=== PATIENT | male | born 1955 | race Caucasian/White ===

== ENCOUNTER 2017-01-14 18:39 | Emergency (ER) | payer MEDICAID, OTHER ==
[~2017-01-14] VITALS: Ht 170.2 cm; Wt 62.0 kg
[~2017-01-14 18:39] MED LIST: DIAZ5 PO; PROZ40CA PO; TAMS5CAP PO
[2017-01-14 18:42] VITALS: BP 102/67; PULSE 80; RESP 16; TEMP 98.6; O2SAT 98
[2017-01-14 19:00] VITALS: BP 125/80; PULSE 78; RESP 18; TEMP 98.7
[2017-01-14] MEDS ORDERED: LORazepam 1 MG TAB PO ONE (19:00)
--- NOTE | 2017-01-14 19:01 | PD ---
HPI Chief Complaint: Anxiety Time Seen by Provider: 18:46 Travel History International Travel<30 days: No Contact w/Intl Traveler<30days: No Traveled to known affect area: No History of Present Illness HPI The patient is a 61-year-old male who presents emergency department via EMS for anxiety and panic attack. The patient has a history of anxiety, depression, bipolar affective disorder. The patient ran out of his Zyprexa and Prozac 1 week ago. He now notes increasing anxiety and depression as well as suicidal ideation. Patient does note fossa suicide over the last 2 days, however, does not have a suicide plan. He denies any previous history of suicide attempts. The patient was being followed at [facility], however, is not followed up with his nurse practitioner over there in the last several months. He denies illicit drug use or alcohol use. He does admit to smoking one half a pack of cigarettes per day. PFSH Past Medical History Narrative Medical Lymphoma, COPD Arthritis: No Asthma: No Autoimmune Disease: No Blood Disorders: No Bipolar Disorder: Yes ( ) Anxiety: Yes Depression: Yes Heart Rhythm Problems: No Cancer: Yes (LYMPHOMA) Cardiovascular Problems: No High Cholesterol: No Chemotherapy: Yes Chest Pain: No Congestive Heart Failure: No Cirrhosis: Yes (LIVER FAILURE) COPD: Yes Cerebrovascular Accident: No Diabetes: No Diminished Hearing: No Endocrine: No Gastrointestinal Disorders: Yes GERD: No Genitourinary: No Headaches: No Hepatitis: Yes (C) Hiatal Hernia: Yes Hypertension: No Immune Disorder: No Implanted Vascular Access Dvce: Yes ( ) Kidney Stones: Yes Musculoskeletal: Yes (CHRONIC LOW BACK PAIN) Neurologic: No Psychiatric: Yes Reproductive: No Respiratory: Yes (COPD) Migraines: No Myocardial Infarction: No Radiation Therapy: Yes Renal Failure: No Seizures: No Sickle Cell Disease: No Sleep Apnea: No Thyroid Disease: No Ulcer: No PNEUMOCCOCAL Vaccine (Year): 2 Past Surgical History Abdominal Surgery: Yes (HERNIA REPAIR) AICD: No Cardiac Surgery: No Ear Surgery: No Endocrine Surgery: No Eye Surgery: No Genitourinary Surgery: No Gynecologic Surgery: No Insulin Pump: No Joint Replacement: No Neurologic Surgery: No Oral Surgery: No Pacemaker: No Thoracic Surgery: No Other Surgery: Yes ("left chest port removed and g-tube removed years ago") Social History Alcohol Use: Yes (occ.) Tobacco Use: Yes (PACK A DAY) Substance Use: Yes (NOT RECENT) Allergies-Medications (Allergen,Severity, Reaction): Coded Allergies: Morphine (Verified Allergy, Severe, Hives, 01/14/17) *MDRO Multi-Drug Resistant Organism (Verified Adverse Reaction, Unknown, ) MRSA PCR Screen positive 09/10/15. Reported Meds & Prescriptions Reported Meds & Active Scripts Active Reported Zyprexa (Olanzapine) 5 Mg Tab 5 Mg PO HS Prozac (Fluoxetine HCl) 40 Mg Cap 40 Cap PO HS PRN Review of Systems Except as stated in HPI: all other systems reviewed are Neg HENT: No: Lightheadedness Cardiovascular: No: Chest Pain or Discomfort Respiratory: No: Shortness of Breath Gastrointestinal: No: Nausea, Vomiting, Abdominal Pain Neurologic: No: Dizziness Psychiatric: Positive: Anxiety, Depression, Suicidal Ideations, Mood Disorder, No: Disorder of Thought, Substance Abuse, Homicidal Ideation Physical Exam Narrative GENERAL: Awake, alert, pleasant 61-year-old male who appears his stated age and is in no acute respiratory distress. SKIN: Warm and dry. HEAD: Atraumatic. Normocephalic. EYES: No injection or drainage. ENT: No nasal bleeding or discharge. Mucous membranes pink and moist. NECK: Trachea midline. No JVD. CARDIOVASCULAR: Regular rate and rhythm. No murmur appreciated. RESPIRATORY: No accessory muscle use. Clear to auscultation. Breath sounds equal bilaterally. MUSCULOSKELETAL: No obvious deformities. No clubbing. No cyanosis. No edema. NEUROLOGICAL: Awake and alert. No obvious cranial nerve deficits. Motor grossly within normal limits. Normal speech. PSYCHIATRIC: Appropriate mood and affect; insight and judgment normal. Data Data Last Documented VS Vital Signs Date Time Temp Pulse Resp B/P Pulse Ox O2 Delivery O2 Flow Rate FiO2 01/14/17 19:00 98.7 78 18 125/80 01/14/17 18:42 98 Orders Lorazepam (Ativan) (01/14/17 19:00) Complete Blood Count With Diff (01/14/17 18:58) Comprehensive Metabolic Panel (01/14/17 18:58) Psych Screen (01/14/17 18:58) Drug Screen, Random Urine (01/14/17 18:58) Alcohol (Ethanol) (01/14/17 18:58) Labs Laboratory Tests Test 01/14/17 19:00 White Blood Count 4.9 TH/MM3 Red Blood Count 4.55 MIL/MM3 Hemoglobin 13.7 GM/DL Hematocrit 40.9 % Mean Corpuscular Volume 89.9 FL Mean Corpuscular Hemoglobin 30.2 PG Mean Corpuscular Hemoglobin 33.6 % Concent Red Cell Distribution Width 14.1 % Platelet Count 258 TH/MM3 Mean Platelet Volume 7.9 FL Neutrophils (%) (Auto) 70.0 % Lymphocytes (%) (Auto) 22.2 % Monocytes (%) (Auto) 6.6 % Eosinophils (%) (Auto) 0.7 % Basophils (%) (Auto) 0.5 % Neutrophils # (Auto) 3.4 TH/MM3 Lymphocytes # (Auto) 1.1 TH/MM3 Monocytes # (Auto) 0.3 TH/MM3 Eosinophils # (Auto) 0.0 TH/MM3 Basophils # (Auto) 0.0 TH/MM3 CBC Comment DIFF FINAL Differential Comment Sodium Level 133 MEQ/L Potassium Level 3.5 MEQ/L Chloride Level 98 MEQ/L Carbon Dioxide Level 23.6 MEQ/L Anion Gap 11 MEQ/L Blood Urea Nitrogen 10 MG/DL Creatinine 0.81 MG/DL Estimat Glomerular Filtration 98 ML/MIN Rate Random Glucose 96 MG/DL Calcium Level 8.3 MG/DL Total Bilirubin LESS THAN 0.1 MG/DL Aspartate Amino Transf 28 U/L (AST/SGOT) Alanine Aminotransferase 30 U/L (ALT/SGPT) Alkaline Phosphatase 96 U/L Total Protein 7.2 GM/DL Albumin 2.7 GM/DL Ethyl Alcohol Level 36 MG/DL MDM Medical Decision Making Medical Screen Exam Complete: Yes Emergency Medical Condition: Yes Medical Record Reviewed: Yes Interpretation(s) Laboratory Tests Test 01/14/17 19:00 White Blood Count 4.9 TH/MM3 Red Blood Count 4.55 MIL/MM3 Hemoglobin 13.7 GM/DL Hematocrit 40.9 % Mean Corpuscular Volume 89.9 FL Mean Corpuscular Hemoglobin 30.2 PG Mean Corpuscular Hemoglobin 33.6 % Concent Red Cell Distribution Width 14.1 % Platelet Count 258 TH/MM3 Mean Platelet Volume 7.9 FL Neutrophils (%) (Auto) 70.0 % Lymphocytes (%) (Auto) 22.2 % Monocytes (%) (Auto) 6.6 % Eosinophils (%) (Auto) 0.7 % Basophils (%) (Auto) 0.5 % Neutrophils # (Auto) 3.4 TH/MM3 Lymphocytes # (Auto) 1.1 TH/MM3 Monocytes # (Auto) 0.3 TH/MM3 Eosinophils # (Auto) 0.0 TH/MM3 Basophils # (Auto) 0.0 TH/MM3 CBC Comment DIFF FINAL Differential Comment Sodium Level 133 MEQ/L Potassium Level 3.5 MEQ/L Chloride Level 98 MEQ/L Carbon Dioxide Level 23.6 MEQ/L Anion Gap 11 MEQ/L Blood Urea Nitrogen 10 MG/DL Creatinine 0.81 MG/DL Estimat Glomerular Filtration 98 ML/MIN Rate Random Glucose 96 MG/DL Calcium Level 8.3 MG/DL Total Bilirubin LESS THAN 0.1 MG/DL Aspartate Amino Transf 28 U/L (AST/SGOT) Alanine Aminotransferase 30 U/L (ALT/SGPT) Alkaline Phosphatase 96 U/L Total Protein 7.2 GM/DL Albumin 2.7 GM/DL Ethyl Alcohol Level 36 MG/DL Differential Diagnosis Differential diagnoses includes anxiety, depressive disorder NOS, mood disorder NOS, panic attack, noncompliance, bipolar affective disorder. Narrative Course Labs were drawn and sent. Patient was administered Ativan 1 mg orally. Psychiatric evaluation was ordered. Labs are unremarkable. Patient is medically clear to be evaluated by psychiatry. Disposition as per psych. Diagnosis Primary Impression: Anxiety and depression Condition: Stable Mario Tompkins MD Jan 14, 2017 19:01
[2017-01-14] MEDS ORDERED: ZYPR5TAB PO (19:06)
[2017-01-14 19:25] LABS: AUTOMATED NEUTROPHIL # 3.4 TH/MM3 (1.8-7.7); BASOPHIL % 0.5 % (0.0-2.0); EOSINOPHIL % 0.7 % (0.0-4.0); HEMATOCRIT 40.9 % (39.0-51.0); HEMO FLAGS DIFF FINAL; LYMPH % 22.2 % (9.0-44.0); LYMPHOCYTE # 1.1 TH/MM3 (1.0-4.8); MEAN CELL VOLUME 89.9 FL (80.0-100.0); MEAN CORPUSCULAR HEMOGLOBIN 30.2 PG (27.0-34.0); MEAN CORPUSCULAR HGB CONC 33.6 % (32.0-36.0); MONO % 6.6 % (0.0-8.0); PLATELET COUNT 258 TH/MM3 (150-450); RED BLOOD COUNT 4.55 MIL/MM3 (4.50-5.90); RED CELL DISTRIBUTION WIDTH 14.1 % (11.6-17.2); WHITE BLOOD COUNT 4.9 TH/MM3 (4.0-11.0)
[2017-01-14 19:32] LABS: ANION GAP 11 MEQ/L (5-15)
[2017-01-14 19:35] LABS: ALKALINE PHOSPHATASE 96 U/L (45-117); ALT (GPT) 30 U/L (12-78); AST (GOT) 28 U/L (15-37); BICARBONATE 23.6 MEQ/L (21.0-32.0); BLOOD UREA NITROGEN 10 MG/DL (7-18); CHLORIDE 98 MEQ/L (98-107); GLOMERULAR FILTRATION RATE 98 ML/MIN (>89); POTASSIUM 3.5 MEQ/L (3.5-5.1); SODIUM (NA) 133 MEQ/L (136-145); TOTAL BILIRUBIN ADULT LESS THAN 0.1 MG/DL (0.2-1.0)
[2017-01-14] MEDS ORDERED: hydrOXYzine HCL 50 MG/ML VIAL IM ONE (20:15)
[2017-01-14 21:00] LABS: AMPHETAMINE, URINE NEG (NEG); BARBITURATES, URINE NEG (NEG); COCAINE, URINE NEG (NEG)
[2017-01-14 23:00] VITALS: BP 106/66; PULSE 88; RESP 20; O2SAT 97
[2017-01-15 03:00] VITALS: BP 104/68; PULSE 88; RESP 20; O2SAT 98
[2017-01-15] MEDS ORDERED: LORazepam 1 MG TAB PO ONE (03:30)
[2017-01-15 06:35] VITALS: BP 120/80
== END 2017-01-15 06:35 | disposition home or self-care (01) ==
LOC: NEPA 18:39
DX: F41.8 Other specified anxiety disorders (principal); F31.9 Bipolar disorder, unspecified; R45.851 Suicidal ideations; F17.210 Nicotine dependence, cigarettes, uncomplicated; K72.90 Hepatic failure, unspecified without coma
CPT/HCPCS: 80053; 80307; 85025; 96372; 99283; J3410

== ENCOUNTER 2017-02-18 02:36 | Emergency (ER) | payer OTHER ==
[~2017-02-18] VITALS: Ht 170.2 cm; Wt 65.0 kg
[~2017-02-18 02:36] MED LIST changes: -DIAZ5 PO; -TAMS5CAP PO; +ZYPR5TAB PO
[2017-02-18 02:41] VITALS: BP 199/139; PULSE 84; RESP 18; TEMP 98.1; O2SAT 96
[2017-02-18] MEDS ORDERED: LORazepam 2 MG/ML VIAL IV PUSH ONE (02:45)
[2017-02-18] MEDS ORDERED: SERTRALINE HCL 50 MG TAB PO ONE (02:45)
[2017-02-18] MEDS ORDERED: PROZ40CA PO (03:24)
[2017-02-18] MEDS ORDERED: ZYPR5TAB PO (03:24)
--- NOTE | 2017-02-18 03:25 | PD ---
HPI Chief Complaint: Anxiety Time Seen by Provider: 02:41 Travel History International Travel<30 days: No Contact w/Intl Traveler<30days: No Traveled to known affect area: No History of Present Illness HPI He is 61 years old. He suffers with anxiety. He takes Prozac for it. He ran out of Prozac about 2 weeks ago or so. He took a sleeping medication however ran out of that as well however does not recall the name of the sleeping medication. He was unable to sleep tonight and was also quite anxious. He states he missed his last doctor's appointment. He has no suicidal or homicidal ideation. He has mild chest tightness which he believes is related to anxiety. PFSH Past Medical History Arthritis: No Asthma: No Autoimmune Disease: No Blood Disorders: No Bipolar Disorder: Yes ( ) Anxiety: Yes Depression: Yes Heart Rhythm Problems: No Cancer: Yes (LYMPHOMA) Cardiovascular Problems: No High Cholesterol: No Chemotherapy: Yes Chest Pain: No Congestive Heart Failure: No Cirrhosis: Yes (LIVER FAILURE) COPD: Yes Cerebrovascular Accident: No Diabetes: No Diminished Hearing: No Endocrine: No Gastrointestinal Disorders: Yes GERD: No Genitourinary: No Headaches: No Hepatitis: Yes (C) Hiatal Hernia: Yes Hypertension: No Immune Disorder: No Kidney Stones: Yes Musculoskeletal: Yes (CHRONIC LOW BACK PAIN) Neurologic: No Psychiatric: Yes Reproductive: No Respiratory: Yes (COPD) Migraines: No Myocardial Infarction: No Radiation Therapy: Yes Renal Failure: No Seizures: No Sickle Cell Disease: No Sleep Apnea: No Thyroid Disease: No Ulcer: No Tetanus Vaccination: > 5 Years Influenza Vaccination: No PNEUMOCCOCAL Vaccine (Year): 2 Past Surgical History Abdominal Surgery: Yes (HERNIA REPAIR) AICD: No Cardiac Surgery: No Ear Surgery: No Endocrine Surgery: No Eye Surgery: No Genitourinary Surgery: No Gynecologic Surgery: No Insulin Pump: No Joint Replacement: No Neurologic Surgery: No Oral Surgery: No Pacemaker: No Thoracic Surgery: No Other Surgery: Yes ("left chest port removed and g-tube removed years ago") Social History Alcohol Use: Yes (occ.) Tobacco Use: Yes (PACK A DAY) Substance Use: No Allergies-Medications (Allergen,Severity, Reaction): Coded Allergies: Morphine (Verified Allergy, Severe, Hives, 02/18/17) *MDRO Multi-Drug Resistant Organism (Verified Adverse Reaction, Unknown, ) MRSA PCR Screen positive 09/10/15. Reported Meds & Prescriptions Reported Meds & Active Scripts Active Reported Zyprexa (Olanzapine) 5 Mg Tab 5 Mg PO HS Prozac (Fluoxetine HCl) 40 Mg Cap 40 Cap PO HS PRN Review of Systems Except as stated in HPI: all other systems reviewed are Neg Physical Exam Narrative GENERAL: Well-nourished well-developed 61-year-old male pleasant SKIN: Focused skin assessment warm/dry. HEAD: Atraumatic. Normocephalic. EYES: Pupils equal and round. No scleral icterus. No injection or drainage. ENT: No nasal bleeding or discharge. Mucous membranes pink and moist. NECK: Trachea midline. No JVD. CARDIOVASCULAR: Regular rate and rhythm. No murmur appreciated. RESPIRATORY: No accessory muscle use. Clear to auscultation. Breath sounds equal bilaterally. GASTROINTESTINAL: Abdomen soft, non-tender, nondistended. Hepatic and splenic margins not palpable. MUSCULOSKELETAL: No obvious deformities. No clubbing. No cyanosis. No edema. NEUROLOGICAL: Awake and alert. No obvious cranial nerve deficits. Motor grossly within normal limits. Normal speech. PSYCHIATRIC: Appropriate mood and affect; insight and judgment normal. Data Data Last Documented VS Vital Signs Date Time Temp Pulse Resp B/P Pulse Ox O2 Delivery O2 Flow Rate FiO2 02/18/17 02:43 79 22 02/18/17 02:41 98.1 199/139 96 VS reviewed Orders Lorazepam Inj (Ativan Inj) (02/18/17 02:45) Sertraline (Zoloft) (02/18/17 02:45) MDM Medical Decision Making Medical Screen Exam Complete: Yes Emergency Medical Condition: Yes Medical Record Reviewed: Yes Differential Diagnosis GANESH, panic attack, medication refill Narrative Course ativan given here with good effect. we'll send home with Prozac refill. Diagnosis Primary Impression: Anxiety and depression Additional Impressions: Insomnia Qualified Code: G47.00 - Insomnia, unspecified type Medication refill Referrals: Primary Care Physician call for appointment Additional Instructions: You have a choice when it comes to health care, and we are glad that you chose [facility]. Hopefully, we have met your expectations on today's visit. You are welcome to return to [facility] at any time, as we are committed to meeting the health care needs of our community. Med/Other Pt SpecificInfo: Prescription(s) given Scripts Olanzapine (Zyprexa)5 Mg Tab5 Mg PO HS #30 TAB Ref 0 Prov:Samuel Garcia MD 02/18/17 Fluoxetine (Prozac)40 Mg Cap40 Cap PO HS PRN (drepression) #30 CAP Ref 0 Prov:Samuel Garcia MD 02/18/17 Disposition: 01 DISCHARGE HOME Condition: Stable Samuel Garcia MD Feb 18, 2017 03:25
[2017-02-18] MEDS ORDERED: FLUoxetine HCL 20 MG CAP PO ONE (03:30)
[2017-02-18 03:34] VITALS: BP_SYST 169; BP_SYST 179; BP_DIAS 111; BP_DIAS 112; PULSE 76; RESP 18; TEMP 98.4; O2SAT 95
[2017-02-18 05:15] VITALS: BP 151/98
== END 2017-02-18 05:17 | disposition home or self-care (01) ==
LOC: NEPC 02:36
DX: F41.9 Anxiety disorder, unspecified (principal); G47.00 Insomnia, unspecified; Z76.0 Encounter for issue of repeat prescription
CPT/HCPCS: 96374; 99283; J2060

== ENCOUNTER 2017-03-16 16:34 | Observation (INO) | payer OTHER ==
[~2017-03-16] VITALS: Ht 170.2 cm; Wt 63.5 kg
[2017-03-16 16:37] VITALS: BP 86/58; PULSE 75; RESP 12; TEMP 97.5; O2SAT 96
--- NOTE | 2017-03-16 16:43 | PD ---
Physical Exam Date Seen by Provider: March 16, 2017 Time Seen by Provider: 16:40 Narrative 62 YOWM C/O LIGHT HEADED , WEAK AND FALLING. SOME SOB BUT NO CP. GETTING WORSE OVER THE LAST 2 WEEKS. VS NOTED WAITING FOR BED PLACEMENT Data Data Last Documented VS Vital Signs Date Time Temp Pulse Resp B/P Pulse Ox O2 Delivery O2 Flow Rate FiO2 03/16/17 16:37 97.5 75 12 86/58 96 MDM Medical Record Reviewed: Yes Supervised Visit with NGOZI: Alexis Salinas March 16, 2017 16:43
[2017-03-16 18:26] VITALS: BP 113/82; PULSE 73; RESP 16; O2SAT 96
[2017-03-16] MEDS ORDERED: SODIUM CHLOR 0.9% 1000 ML INJ 1,000 ML IV ONE (18:28)
[2017-03-16] MEDS ORDERED: SODIUM CHLORIDE 0.9% FLUSH 10 ML FLUSH IVF PRN (18:30)
--- NOTE | 2017-03-16 18:33 | PD ---
HPI Chief Complaint: Dizziness Time Seen by Provider: 18:25 Travel History International Travel<30 days: No Contact w/Intl Traveler<30days: No Traveled to known affect area: No History of Present Illness HPI 62-year-old male presents for evaluation of generalized weakness. Symptoms started 2 weeks ago. He reports essentially generalized weakness as well as some dizziness with a relation. Today he had a syncopal episode which prompted evaluation. He denies any injuries in the fall. He denies any headache, neck pain, chest pain, acute shortness of breath, nausea or vomiting, change in appetite, change in medication, fevers or chills. He reports chronic dyspnea secondary to COPD. Denies any illicit drug use, alcohol use. He has no other complaints. He admits to oral Dilaudid chronically for chronic lower back pain as well as marijuana use. Denies any other drug or substance use. PFSH Past Medical History Arthritis: No Asthma: No Autoimmune Disease: No Blood Disorders: No Bipolar Disorder: Yes ( ) Anxiety: Yes Depression: Yes Heart Rhythm Problems: No Cancer: Yes (lymphoma remission) Cardiovascular Problems: No High Cholesterol: No Chemotherapy: Yes Chest Pain: No Congestive Heart Failure: No Cirrhosis: Yes (LIVER FAILURE) COPD: Yes Cerebrovascular Accident: No Diabetes: No Diminished Hearing: No Endocrine: No Gastrointestinal Disorders: Yes GERD: No Genitourinary: No Headaches: No Hepatitis: Yes (C) Hiatal Hernia: Yes Hypertension: Yes Immune Disorder: No Kidney Stones: Yes Medical other: Yes (Hep C. liver failure) Musculoskeletal: Yes (CHRONIC LOW BACK PAIN) Neurologic: No Psychiatric: Yes Reproductive: No Respiratory: Yes (COPD) Migraines: No Myocardial Infarction: No Radiation Therapy: Yes Renal Failure: No Seizures: No Sickle Cell Disease: No Sleep Apnea: No Thyroid Disease: No Ulcer: No Tetanus Vaccination: < 5 Years Influenza Vaccination: No PNEUMOCCOCAL Vaccine (Year): 2 Past Surgical History Abdominal Surgery: Yes (HERNIA REPAIR) AICD: No Cardiac Surgery: No Ear Surgery: No Endocrine Surgery: No Eye Surgery: No Genitourinary Surgery: No Gynecologic Surgery: No Insulin Pump: No Joint Replacement: No Neurologic Surgery: No Oral Surgery: No Pacemaker: No Thoracic Surgery: No Other Surgery: Yes ("left chest port removed and g-tube removed years ago") Social History Alcohol Use: Yes (occu. hx of alcohol abuse) Tobacco Use: Yes (2 ppd) Substance Use: Yes (quit couple yrs) Allergies-Medications (Allergen,Severity, Reaction): Coded Allergies: Morphine (Verified Allergy, Severe, Hives, 02/18/17) *MDRO Multi-Drug Resistant Organism (Verified Adverse Reaction, Unknown, ) MRSA PCR Screen positive 09/10/15. Reported Meds & Prescriptions Reported Meds & Active Scripts Active Zyprexa (Olanzapine) 5 Mg Tab 5 Mg PO HS Prozac (Fluoxetine HCl) 40 Mg Cap 40 Cap PO HS PRN Review of Systems Except as stated in HPI: all other systems reviewed are Neg Physical Exam Narrative GENERAL: Well-developed well-nourished male in no acute distress SKIN: Warm and dry. HEAD: Atraumatic. Normocephalic. EYES: Pupils equal and round. No scleral icterus. No injection or drainage. ENT: No nasal bleeding or discharge. Mucous membranes pink and moist. NECK: Trachea midline. No JVD. CARDIOVASCULAR: Regular rate and rhythm. No murmur appreciated. RESPIRATORY: No accessory muscle use. Clear to auscultation. Breath sounds equal bilaterally. GASTROINTESTINAL: Abdomen soft, non-tender, nondistended. Hepatic and splenic margins not palpable. MUSCULOSKELETAL: No obvious deformities. No clubbing. No cyanosis. No edema. NEUROLOGICAL: Awake and alert. No obvious cranial nerve deficits. Motor grossly within normal limits. Normal speech. PSYCHIATRIC: Appropriate mood and affect; insight and judgment normal. Data Data Last Documented VS Vital Signs Date Time Temp Pulse Resp B/P Pulse Ox O2 Delivery O2 Flow Rate FiO2 03/16/17 20:58 62 83/58 03/16/17 18:26 16 96 Room Air 03/16/17 16:37 97.5 Orders Electrocardiogram (03/16/17 16:43) Electrocardiogram (03/16/17 18:28) Complete Blood Count With Diff (03/16/17 18:28) Comprehensive Metabolic Panel (03/16/17 18:28) Magnesium (Mg) (03/16/17 18:28) Ckmb (Isoenzyme) Profile (03/16/17 18:28) Troponin I (03/16/17 18:28) Act Partial Throm Time (Ptt) (03/16/17 18:28) Prothrombin Time / Inr (Pt) (03/16/17 18:28) Chest, Single Ap (03/16/17 18:28) Ct Brain W/O Iv Contrast(Rout) (03/16/17 18:28) Ecg Monitoring (03/16/17 18:28) Iv Access Insert/Monitor (03/16/17 18:28) Oximetry (03/16/17 18:28) Sodium Chloride 0.9% Flush (Ns Flush) (03/16/17 18:30) Sodium Chlor 0.9% 1000 Ml Inj (Ns 1000 M (03/16/17 18:28) Drug Screen, Random Urine (03/16/17 18:33) Alcohol (Ethanol) (03/16/17 18:33) Potassium, Serum (K) (03/16/17 19:54) Sodium Chlor 0.9% 1000 Ml Inj (Ns 1000 M (03/16/17 19:57) Urinalysis - C+S If Indicated (03/16/17 20:55) Admit Order (Ed Use Only) (03/16/17 20:57) Labs Laboratory Tests Test 03/16/17 03/16/17 03/16/17 18:55 19:00 20:15 White Blood Count 3.7 TH/MM3 Red Blood Count 5.06 MIL/MM3 Hemoglobin 14.8 GM/DL Hematocrit 45.9 % Mean Corpuscular Volume 90.8 FL Mean Corpuscular Hemoglobin 29.2 PG Mean Corpuscular Hemoglobin 32.1 % Concent Red Cell Distribution Width 15.1 % Platelet Count 229 TH/MM3 Mean Platelet Volume 8.2 FL Neutrophils (%) (Auto) 57.7 % Lymphocytes (%) (Auto) 24.9 % Monocytes (%) (Auto) 12.6 % Eosinophils (%) (Auto) 3.5 % Basophils (%) (Auto) 1.3 % Neutrophils # (Auto) 2.2 TH/MM3 Lymphocytes # (Auto) 0.9 TH/MM3 Monocytes # (Auto) 0.5 TH/MM3 Eosinophils # (Auto) 0.1 TH/MM3 Basophils # (Auto) 0.0 TH/MM3 CBC Comment DIFF FINAL Differential Comment Prothrombin Time 10.1 SEC Prothromb Time International 0.9 RATIO Ratio Activated Partial 25.7 SEC Thromboplast Time Sodium Level 136 MEQ/L Potassium Level 5.4 MEQ/L 4.4 MEQ/L Chloride Level 100 MEQ/L Carbon Dioxide Level 28.6 MEQ/L Anion Gap 7 MEQ/L Blood Urea Nitrogen 16 MG/DL Creatinine 1.18 MG/DL Estimat Glomerular Filtration 63 ML/MIN Rate Random Glucose 80 MG/DL Calcium Level 8.7 MG/DL Magnesium Level 2.3 MG/DL Total Bilirubin 0.3 MG/DL Aspartate Amino Transf 83 U/L (AST/SGOT) Alanine Aminotransferase 64 U/L (ALT/SGPT) Alkaline Phosphatase 116 U/L Total Creatine Kinase 90 U/L Troponin I LESS THAN 0.02 NG/ML Total Protein 8.1 GM/DL Albumin 2.8 GM/DL Ethyl Alcohol Level LESS THAN 3 MG/DL Urine Opiates Screen POS Urine Barbiturates Screen NEG Urine Amphetamines Screen NEG Urine Benzodiazepines Screen POS Urine Cocaine Screen NEG Urine Cannabinoids Screen NEG MDM Medical Decision Making Medical Screen Exam Complete: Yes Emergency Medical Condition: Yes Medical Record Reviewed: Yes Interpretation(s) EKG NSR LAE CT brain normal Chest x-ray normal CBC WBC 3.7 Differential Diagnosis Electrolyte abnormality, syncope, dehydration, arrhythmia, acute coronary syndrome, symptomatic anemia Narrative Course 62-year-old male who has been feeling generally weak for 2 weeks, some dizziness. Today he had a syncopal event. He has no focal neurologic deficits on examination. He is hypotensive on initial examination with the highest blood pressure reading being 113/82 Plans for basic lab work, EKG, ECG monitoring. The patient's laboratory and imaging studies been reviewed. Initial potassium was 5.3 with some hemolysis. Repeat potassium has been ordered. The patient is being given 2 L of IV fluids. Drug screen is positive for opiates and benzodiazepines. The plan would be to admit him for observation for syncope and hypotension. He is agreeable. Diagnosis Primary Impression: Syncope Qualified Code: R55 - Syncope, unspecified syncope type Admitting Information Admitting Physician Requests: Observation Cmapos Cheung March 16, 2017 18:33
--- NOTE | 2017-03-16 18:54 | RADRPT ---
EXAM DATE/TIME: 03/16/2017 18:39 [facility] COMPARISON: CHEST SINGLE AP, November 30, 2015, 7:40. INDICATIONS : Syncope MEDICAL HISTORY : None. SURGICAL HISTORY : None. ENCOUNTER: Initial ACUITY: 1 day PAIN SCORE: Non-responsive. LOCATION: Bilateral chest FINDINGS: A single view of the chest demonstrates the lungs to be symmetrically aerated without evidence of mas s, infiltrate or effusion. The cardiomediastinal contours are unremarkable. Osseous structures are intact. CONCLUSION: No acute cardiopulmonary disease demonstrated. Juventino Novak MD on March 16, 2017 at 18:52 Board Certified Radiologist. This report was verified electronically.
--- NOTE | 2017-03-16 19:03 | RADRPT ---
EXAM DATE/TIME: 03/16/2017 18:48 [facility] COMPARISON: CT BRAIN W/O CONTRAST, June 23, 2013, 13:20. INDICATIONS : Weakness and dizziness X 2 weeks. RADIATION DOSE: 38.87 CTDIvol (mGy) MEDICAL HISTORY : None SURGICAL HISTORY : None. ENCOUNTER: Initial ACUITY: 1 day PAIN SCALE: 0/10 LOCATION: cranial TECHNIQUE: Multiple contiguous axial images were obtained of the head. Using automated exposure control and adj ustment of the mA and/or kV according to patient size, radiation dose was kept as low as reasonably a chievable to obtain optimal diagnostic quality images. FINDINGS: CEREBRUM: The ventricles are normal for age. No evidence of midline shift, mass lesion, hemorrhage or acute in farction. No extra-axial fluid collections are seen. POSTERIOR FOSSA: The cerebellum and brainstem are intact. The 4th ventricle is midline. The cerebellopontine angle i s unremarkable. EXTRACRANIAL: The visualized portion of the orbits is intact. SKULL: The calvaria is intact. No evidence of skull fracture. CONCLUSION: No acute intracranial abnormality. Juventino Novak MD on March 16, 2017 at 19:00 Board Certified Radiologist. This report was verified electronically.
[2017-03-16 19:15] LABS: AUTOMATED NEUTROPHIL # 2.2 TH/MM3 (1.8-7.7); BASOPHIL % 1.3 % (0.0-2.0); EOSINOPHIL # 0.1 TH/MM3 (0-0.4); EOSINOPHIL % 3.5 % (0.0-4.0); HEMATOCRIT 45.9 % (39.0-51.0); HEMO FLAGS DIFF FINAL; LYMPH % 24.9 % (9.0-44.0); LYMPHOCYTE # 0.9 TH/MM3 (1.0-4.8); MEAN CELL VOLUME 90.8 FL (80.0-100.0); MEAN CORPUSCULAR HEMOGLOBIN 29.2 PG (27.0-34.0); MEAN CORPUSCULAR HGB CONC 32.1 % (32.0-36.0); MONO % 12.6 % (0.0-8.0); NEUT % 57.7 % (16.0-70.0); PLATELET COUNT 229 TH/MM3 (150-450); RED BLOOD COUNT 5.06 MIL/MM3 (4.50-5.90); RED CELL DISTRIBUTION WIDTH 15.1 % (11.6-17.2); WHITE BLOOD COUNT 3.7 TH/MM3 (4.0-11.0)
[2017-03-16 19:34] LABS: APTT (PATIENT) 25.7 SEC (24.3-30.1); INTERNATIONAL NORMALIZED RATIO 0.9 RATIO; PROTHROMBIN TIME - PATIENT 10.1 SEC (9.8-11.6)
[2017-03-16 19:44] LABS: AMPHETAMINE, URINE NEG (NEG); BARBITURATES, URINE NEG (NEG); COCAINE, URINE NEG (NEG)
[2017-03-16 19:50] LABS: ALKALINE PHOSPHATASE 116 U/L (45-117); ALT (GPT) 64 U/L (12-78); ANION GAP 7 MEQ/L (5-15); AST (GOT) 83 U/L (15-37); BICARBONATE 28.6 MEQ/L (21.0-32.0); BLOOD UREA NITROGEN 16 MG/DL (7-18); CHLORIDE 100 MEQ/L (98-107); CREATINE KINASE 90 U/L (39-308); GLOMERULAR FILTRATION RATE 63 ML/MIN (>89); MAGNESIUM 2.3 MG/DL (1.5-2.5); POTASSIUM 5.4 MEQ/L (3.5-5.1); SODIUM (NA) 136 MEQ/L (136-145); TOTAL BILIRUBIN ADULT 0.3 MG/DL (0.2-1.0)
[2017-03-16] MEDS ORDERED: SODIUM CHLOR 0.9% 1000 ML INJ 1,000 ML IV SCH (19:57)
[2017-03-16 20:58] VITALS: BP 83/58; PULSE 62
--- NOTE | 2017-03-16 21:26 | HHI.HP ---
[facility] Eric Rose DO Admission Diagnosis Syncope Diagnoses: (1) Syncope Diagnosis: Principal (2) Generalized weakness Diagnosis: Principal (3) Hypotension Diagnosis: Principal (4) Hyperkalemia Diagnosis: Principal Travel History International Travel<30 Days: No Contact w/Intl Traveler <30 Da: No Traveled to Known Affected Are: No History of Present Illness This is a 62-year-old male with a PMH of Anxiety, Depression, Bipolar Disorder, Lymphoma, Hepatitis C, Chronic Back Pain, COPD, h/o Alcohol Abuse and Tobacco Abuse who was brought to the ER by EMS after syncopal event. Per pt, he's had ongoing dizziness/lightheadedness for approx 2wks w/ decreased PO intake. Today , states he was at a "friend's auto shop" when he had sudden dizziness followed by syncope. +head trauma. Denies seizure activity or incontinence. No previous history of syncope in the past. On arrival, noted to be hypotensive w / BP 86/58, HR 75, O2 sat 96% on RA, Afebrile. S/p IVF w/ good response, BP currently 113/82, HR 73. CBC essentially unremarkable, mild leukopenia. K+ 5.4 , repeat pending. Trop negative. EKG w/ no acute changes. Urine Drug Screen positive for Opiates and Benzos. CT Head with no acute findings. CXR with no acute findings. Review of Systems Except as stated in HPI: all other systems reviewed are Neg ROS: 14 point review of systems otherwise negative. Past Family Social History Past Medical History PMH: Anxiety, Depression, Bipolar Disorder, Lymphoma, Hepatitis C, Chronic Back Pain, COPD, h/o Alcohol Abuse and Tobacco Abuse Past Surgical History PAST SURGICAL HISTORY: Hernia Repair, Left Chest Port, G-tube Placement and Removal Allergies: Coded Allergies: Morphine (Verified Allergy, Severe, Hives, 02/18/17) *MDRO Multi-Drug Resistant Organism (Verified Adverse Reaction, Unknown, ) MRSA PCR Screen positive 09/10/15. Family History PAST FAMILY HISTORY: Reviewed. No h/o DM or CAD Social History PAST SOCIAL HISTORY: Previous history of alcohol abuse. Smokes 1/2ppd. H/o Substance Abuse. Physical Exam Vital Signs Vital Signs Date Time Temp Pulse Resp B/P Pulse Ox O2 Delivery O2 Flow Rate FiO2 03/16/17 20:58 62 83/58 03/16/17 18:26 73 16 113/82 96 Room Air 03/16/17 16:37 97.5 75 12 86/58 96 Physical Exam PE: GENERAL: Middle-aged thin white male in no acute distress, appears tired/week. HEENT: PERRLA, EOMI. No scleral icterus or conjunctival pallor. No lid lag or facial droop. CARDIOVASCULAR: Regular rate and rhythm. No obvious murmurs to auscultation. No chest tenderness to palpation. RESPIRATORY: No obvious rhonchi or wheezing. Clear to auscultation. Breath sounds equal bilaterally. GASTROINTESTINAL: Abdomen soft, non-tender, nondistended. BS normal. MUSCULOSKELETAL: Extremities without clubbing, cyanosis, or edema. No obvious deformities. NEUROLOGICAL: Awake, alert and oriented x4. No focal neurologic deficits. Moving both upper and lower extremities spontaneously. Laboratory Laboratory Tests Test 03/16/17 03/16/17 03/16/17 18:55 19:00 20:15 White Blood Count 3.7 Red Blood Count 5.06 Hemoglobin 14.8 Hematocrit 45.9 Mean Corpuscular Volume 90.8 Mean Corpuscular Hemoglobin 29.2 Mean Corpuscular Hemoglobin 32.1 Concent Red Cell Distribution Width 15.1 Platelet Count 229 Mean Platelet Volume 8.2 Neutrophils (%) (Auto) 57.7 Lymphocytes (%) (Auto) 24.9 Monocytes (%) (Auto) 12.6 Eosinophils (%) (Auto) 3.5 Basophils (%) (Auto) 1.3 Neutrophils # (Auto) 2.2 Lymphocytes # (Auto) 0.9 Monocytes # (Auto) 0.5 Eosinophils # (Auto) 0.1 Basophils # (Auto) 0.0 CBC Comment DIFF FINAL Differential Comment Prothrombin Time 10.1 Prothromb Time International 0.9 Ratio Activated Partial 25.7 Thromboplast Time Sodium Level 136 Potassium Level 5.4 4.4 Chloride Level 100 Carbon Dioxide Level 28.6 Anion Gap 7 Blood Urea Nitrogen 16 Creatinine 1.18 Estimat Glomerular Filtration 63 Rate Random Glucose 80 Calcium Level 8.7 Magnesium Level 2.3 Total Bilirubin 0.3 Aspartate Amino Transf 83 (AST/SGOT) Alanine Aminotransferase 64 (ALT/SGPT) Alkaline Phosphatase 116 Total Creatine Kinase 90 Troponin I LESS THAN 0.02 Total Protein 8.1 Albumin 2.8 Ethyl Alcohol Level LESS THAN 3 Urine Opiates Screen POS Urine Barbiturates Screen NEG Urine Amphetamines Screen NEG Urine Benzodiazepines Screen POS Urine Cocaine Screen NEG Urine Cannabinoids Screen NEG Result Diagram: 03/16/17 1855 03/16/172014 Assessment and Plan Problem List: (1) Syncope ICD Code: R55 Status: Acute (2) Generalized weakness ICD Code: R53.1 Status: Acute (3) Hypotension ICD Code: I95.9 Status: Acute (4) Hyperkalemia ICD Code: E87.5 Status: Acute Assessment and Plan A/P: 1. Syncope: acute onset of dizziness/lightheadedness w/ associated decreased PO intake x2wks, +hypotensive on arrival, syncopal likely due to dehydration. CT Head w/ no acute findings, images reviewed by me. CXR negative, images reviewed. Admit for Observation, telemetry, check Echo-previous Echo 09/13/12 w / EF 55-60%. IVF for hydration. Repeat labs in am. 2. Generalized Weakness: ongoing weakness x2 wks per patient, labs essentially unremarkable. Check U/a to eval for underlying UTI. IVF for hydration. PT for eval/tx. 3. Hypotension: secondary to dehydration. BP on arrival, 86/58, HR 75, good response to IVF, currently BP 113/82, HR 73. Will continue to monitor. IVF. 4. Hyperkalemia: K+ 5.4 however hemolyzed. Repeat K+ now 4.4. 5. Tobacco Abuse: Pt counselled. NicoDerm prn if needed. 6. DVT Prophylaxis: SCD/Teds. 7. Social work for d/c planning as needed. 8. Case discussed w/ ER physician at length. Problem Qualifiers (1) Syncope: Qualified Code: R55 - Syncope, unspecified syncope type Rama Brown MD March 16, 2017 21:26
[2017-03-16] MEDS ORDERED: SODIUM CHLORIDE 0.9% FLUSH 10 ML FLUSH IV FLUSH PRN (21:30)
[2017-03-16] MEDS ORDERED: ONDANSETRON HCL 4 MG/2 ML VIAL IVP PRN (21:30)
[2017-03-16] MEDS ORDERED: BISACODYL 10 MG SUPP RECTAL PRN (21:30)
[2017-03-16] MEDS ORDERED: ACETAMINOPHEN 325 MG TAB PO PRN (21:30)
[2017-03-16 22:24] VITALS: BP 96/66
[2017-03-16 22:36] VITALS: BP 121/78; PULSE 74; RESP 19; TEMP 98; O2SAT 94
[2017-03-16] MEDS: SODIUM CHLOR 0.9% 1000 ML INJ 1,000 ML IV SCH (22:39)
[2017-03-16 22:40] LABS: BLOOD, URINE NEG (NEG); COMMENT (UR) CULT NOT INDICATED; CULTURE IF INDICATED CULT NOT INDICATED; GLUCOSE,URINE NEG (NEG); HYALINE CAST, URINE 59 /lpf (RARE); KETONE, URINE TRACE mg/dL (NEG); MUCUS URINE FEW /lpf (OCC); NITRITE,URINE NEG (NEG); URINE COLOR YELLOW (YELLW/STRAW)
[2017-03-16 22:45] VITALS: PULSE 73
[2017-03-17 03:22] VITALS: BP_SYST 148; BP_SYST 149; BP_DIAS 109; BP_DIAS 92; PULSE 78; RESP 18; TEMP 98.3; O2SAT 95
[2017-03-17 04:17] LABS: AUTOMATED NEUTROPHIL # 2.4 TH/MM3 (1.8-7.7); BASOPHIL % 0.8 % (0.0-2.0); EOSINOPHIL # 0.1 TH/MM3 (0-0.4); EOSINOPHIL % 2.5 % (0.0-4.0); HEMATOCRIT 42.2 % (39.0-51.0); HEMO FLAGS DIFF FINAL; LYMPH % 19.6 % (9.0-44.0); LYMPHOCYTE # 0.8 TH/MM3 (1.0-4.8); MEAN CELL VOLUME 90.4 FL (80.0-100.0); MEAN CORPUSCULAR HGB CONC 33.2 % (32.0-36.0); NEUT % 61.1 % (16.0-70.0); PLATELET COUNT 199 TH/MM3 (150-450); RED BLOOD COUNT 4.67 MIL/MM3 (4.50-5.90); RED CELL DISTRIBUTION WIDTH 14.9 % (11.6-17.2); WHITE BLOOD COUNT 3.9 TH/MM3 (4.0-11.0)
[2017-03-17 04:42] LABS: ALKALINE PHOSPHATASE 103 U/L (45-117); ALT (GPT) 57 U/L (12-78); ANION GAP 7 MEQ/L (5-15); AST (GOT) 68 U/L (15-37); BICARBONATE 24.7 MEQ/L (21.0-32.0); BLOOD UREA NITROGEN 13 MG/DL (7-18); CHLORIDE 109 MEQ/L (98-107); GLOMERULAR FILTRATION RATE 119 ML/MIN (>89); POTASSIUM 4.3 MEQ/L (3.5-5.1); SODIUM (NA) 141 MEQ/L (136-145); TOTAL BILIRUBIN ADULT 0.2 MG/DL (0.2-1.0)
[2017-03-17] MEDS: SODIUM CHLOR 0.9% 1000 ML INJ 1,000 ML IV SCH (07:19)
[2017-03-17 08:08] VITALS: BP_SYST 175; BP_SYST 176; BP_SYST 194; BP_DIAS 118; BP_DIAS 120; BP_DIAS 123; PULSE 93; RESP 19; TEMP 98.2; O2SAT 96
[2017-03-17] MEDS ORDERED: SODIUM CHLORIDE 0.9% FLUSH 10 ML FLUSH IV FLUSH SCH (09:00)
[2017-03-17] MEDS ORDERED: FLUoxetine HCL 20 MG CAP PO SCH (11:00)
[2017-03-17 12:04] VITALS: BP_SYST 140; BP_SYST 150; BP_DIAS 100; BP_DIAS 80; PULSE 87; RESP 18; TEMP 97.8; O2SAT 96
--- NOTE | 2017-03-17 12:14 | HHI.PR ---
Subjective Remarks Follow up for syncope. The patient reports no further events since his arrival. Denies any lightheadedness or dizziness. Denies any other medical complaints currently. He wants to be discharged, explained we are awaiting echocardiogram results. He is tolerating oral intake, blood pressure much improved. The patient admits he definitely wasn't drinking much water and also was not eating much recently; he agrees he was likely dehydrated. Discussed his UDS being positive for opiates and benzos. He states he was on Dilaudid in [place] but hasn't had this in a "couple days". Explained that per [employer] [place] Prescription Drug Monitoring Website, he has not filled Dilaudid in [place] and that he will need to follow up with a PCP or pain management after discharge; patient verbalized understanding. He states he does not know why he is positive for benzos; denies being prescribed any ativan, xanax, Klonopin, etc. Objective Vitals Vital Signs Date Time Temp Pulse Resp B/P Pulse Ox O2 Delivery O2 Flow Rate FiO2 03/17/17 08:08 98.2 93 19 194/118 96 176/120 175/123 03/17/17 03:22 98.3 78 18 149/109 95 03/16/17 22:45 73 03/16/17 22:36 98.0 74 19 121/78 94 03/16/17 22:24 69 16 96/66 99 03/16/17 20:58 62 83/58 03/16/17 18:26 73 16 113/82 96 Room Air 03/16/17 16:37 97.5 75 12 86/58 96 Result Diagram: 03/17/17 0350 03/17/17 0350 Imaging Last Impressions Head CT 03/16/171827 Signed Impressions: Service Date/Time: Thursday, March 16, 2017 18:48 - CONCLUSION: No acute intracranial abnormality. Juventino Novak MD Chest X-Ray 03/16/171827 Signed Impressions: Service Date/Time: Thursday, March 16, 2017 18:39 - CONCLUSION: No acute cardiopulmonary disease demonstrated. Juventino Novak MD Objective Remarks GENERAL: Well-nourished, well-developed middle aged male patient in [facility]. SKIN: Warm and dry. No rash. HEENT: Normocephalic. Atraumatic.Pupils equal and round. Mucous membranes pink and moist. NECK: Supple. Trachea midline. CARDIOVASCULAR: Regular rate and rhythm. S1, S2 noted. No murmur appreciated. RESPIRATORY: No accessory muscle use. Clear to auscultation. Breath sounds equal bilaterally. GASTROINTESTINAL: Abdomen soft, non-tender, nondistended. Normoactive bowel sounds x4. MUSCULOSKELETAL: No obvious deformities. Extremities without clubbing, cyanosis , or edema. NEUROLOGICAL: Awake and alert. No obvious cranial nerve deficits. Motor grossly within normal limits. 5/5 muscle strength in bilateral upper and lower extremities. Normal speech. PSYCHIATRIC: Appropriate mood and affect; insight and judgment normal. Medications and IVs Current Medications Medications (Trade) Dose Ordered Sig/Jung Route Start Time Stop Time Status Last Admin (NS 1000 ml Inj) 1,000 ml @ 100 mls/hr Q10H IV 03/16/17 21:19 03/16/17 22:39 (NS Flush) 2 ml UNSCH PRN IV FLUSH 03/16/17 21:30 (NS Flush) 2 ml BID IV FLUSH 03/17/17 09:00 (Zofran Inj) 4 mg Q6H PRN IVP 03/16/17 21:30 (Dulcolax Supp) 10 mg DAILY PRN RECTAL 03/16/17 21:30 (Tylenol) 650 mg Q6H PRN PO 03/16/17 21:30 (Roxicodone) 10 mg Q4H PRN PO 03/16/17 21:30 (Roxicodone) 5 mg Q4H PRN PO 03/16/17 21:30 (ZyPREXA) 5 mg HS PO 03/17/17 21:00 (PROzac) 40 mg DAILY PO 03/17/17 11:00 A/P Problem List: (1) Syncope ICD Code: R55 Status: Acute (2) Generalized weakness ICD Code: R53.1 Status: Acute (3) Hypotension ICD Code: I95.9 Status: Acute (4) Hyperkalemia ICD Code: E87.5 Status: Acute Assessment and Plan 62-year-old male with a PMH of Anxiety, Depression, Bipolar Disorder, Lymphoma, Hepatitis C, Chronic Back Pain, COPD, h/o Alcohol Abuse and Tobacco Abuse who was brought to the ER by EMS after syncopal event. Syncope: acute onset of dizziness/lightheadedness w/ associated decreased PO intake x2wks, +hypotensive on arrival, syncopal likely due to dehydration. CT Head w/ no acute findings, images reviewed by me. CXR negative, images reviewed. Admitted for Observation, monitor on telemetry, check Echo-previous Echo 09/13/12 w/ EF 55-60%. Given IVF for hydration. Orthostatics improved. Repeat labs today with much improvement. No further syncopal events. Resolved. Generalized Weakness: ongoing weakness x2 wks per patient, labs essentially unremarkable. UA negative for underlying UTI. IVF for hydration. PT for eval/ tx, recommends HHC if possible. Case management consulted. Hypotension: secondary to dehydration. BP on arrival, 86/58, HR 75, good response to IVF, currently BP 113/82, HR 73. Will continue to monitor. D/c IVF , patient tolerating oral intake. BP much improved. Hyperkalemia: K+ 5.4 however hemolyzed. Repeat K+ now 4.3. Resolved. Tobacco Abuse: Pt counselled. NicoDerm prn if needed. Polysubstance Abuse: counselled on cessation. UDS +benzos/opiates. Patient reports getting prescriptions for po Dilaudid from a physician in [place] however has not been taking these recently. Patient does not know why he is positive for benzos. Recommend f/up with PCP after discharge. DVT Prophylaxis: SCD/Teds. manager game for d/c planning as needed. Discharge Planning Likely discharge after echocardiogram resulted. 1500hrs: RN reports the patient tried to elope from the building because his ride was here to pick him up. He was brought back to his room however he decided to sign himself out AMA because his ride was here. He is AAOx4. He refused to wait for echocardiogram results. manager game also reports the patient declined any HHC. He signed out AGAINST MEDICAL ADVICE. Problem Qualifiers (1) Syncope: Qualified Code: R55 - Syncope, unspecified syncope type Keri Barlow PA-C March 17, 2017 12:14 pm
--- NOTE | 2017-03-17 15:25 | EC ---
Study Study Date:03/17/2017 STUDY CONCLUSIONS SUMMARY - Left ventricle: The cavity size was normal. Wall thickness was at the upper limits of normal. Systolic function was mildly to moderately reduced. The estimated ejection fraction was in the range of 40% to 45%. Diffuse hypokinesis. - Aortic valve: Valve area: 2.46cm^2 (Vmax). - Mitral valve: Mildly calcified annulus. If LV function is below 40, please consider prescribing an ACEI or ARB or document rationale for non-use. PROCEDURE DATA STUDY STATUS: Elective. Procedure: Transthoracic echocardiography. Image quality was good. Scanning was performed from the parasternal, apical, and subcostal acoustic windows. Study completion: The patient tolerated the procedure well. Transthoracic echocardiography. M-mode, complete 2D, complete spectral Doppler, and color Doppler. Height: Height: 67in. Weight: Weight: 138.7lb. Body mass index: BMI: 21.8kg/m^2. Body surface area: BSA: 1.73m^2. Patient status: Inpatient. CARDIAC ANATOMY LEFT VENTRICLE: The cavity size was normal. Wall thickness was at the upper limits of normal. Systolic function was mildly to moderately reduced. The estimated ejection fraction was in the range of 40% to 45%. Diffuse hypokinesis. AORTIC VALVE: Trileaflet; normal thickness leaflets. Doppler: Transvalvular velocity was within the normal range. There was no stenosis. No regurgitation. Valve area: 2.46cm^2 (Vmax). Indexed valve area: 1.42cm^2/m^2 (Vmax). AORTA: The aorta was mildly calcified. Aortic root: The aortic root was normal in size. MITRAL VALVE: Mildly calcified annulus. Doppler: Transvalvular velocity was within the normal range. There was no evidence for stenosis. No regurgitation. Valve area by pressure half-time: 4.68cm^2. Indexed valve area by pressure half-time: 2.71cm^2/m^2. LEFT ATRIUM: The atrium was normal in size. RIGHT VENTRICLE: The cavity size was normal. Wall thickness was normal. PULMONIC VALVE: Doppler: Transvalvular velocity was within the normal range. There was no evidence for stenosis. No regurgitation. TRICUSPID VALVE: Structurally normal valve. Doppler: Transvalvular velocity was within the normal range. No regurgitation. Peak gradient: 10mm Hg (D). PULMONARY ARTERY: The main pulmonary artery was normal-sized. Systolic pressure was within the normal range. RIGHT ATRIUM: The atrium was normal in size. PERICARDIUM: There was no pericardial effusion. SYSTEMIC VEINS: Inferior vena cava: The vessel was normal in size. Patient weight: 138.7lb _Ejection fraction:_ 65-75% _Fractional shortening:_ 32% up to 5Kg 5-11.5Kg 11.6-22.9Kg 23-45Kg 45-57Kg Aortic Root 7-13 <17 13-22 17-27 17-27 LA diam 6-13 <23 24-38 33-47 37-40 RVID 10-17 7-15 7-15 7-18 8-17 LVIDd 12-22 <32 24-38 33-47 37-40 LVPW 2-4 3-6 5-7 6-8 7-8 IVS 2-4 3-6 5-7 6-8 7-8 BASIC MEASUREMENTS ADULT NORMAL Left ventricle LV internal dimension, ED, chordal *41.4 mm 43-52 level, PLAX LV internal dimension, ES, chordal 34.7 mm 23-38 level, PLAX Fractional shortening, chordal level, *16 % >29 PLAX LV posterior wall thickness, ED 10.6 mm IVS/LVPW ratio, ED 1.01 <1.3 Volume, ED, MOD, 1-plane 119 ml Volume, ES, MOD, 1-plane 73 ml Ejection fraction, MOD, 1-plane 39 % Stroke volume, MOD, 1-plane 46 ml Volume index, ED, MOD, 1-plane 69 ml/m^2 Volume index, ES, MOD, 1-plane 42 ml/m^2 Stroke index, MOD, 1-plane 26.6 ml/m^2 Ventricular septum Septal thickness, ED 10.7 mm Aortic valve Leaflet separation 20 mm 15-26 Left atrium Anterior-posterior dimension 33 mm Anterior-posterior dimension index 1.91 cm/m^2 <2.2 Right ventricle RV internal dimension, ED, PLAX 28.6 mm 19-38 BASIC MEASUREMENTS ADULT NORMAL Left ventricle LV internal dimension, ED 50.5 mm 37-56 LV internal dimension, ES 41.2 mm Fractional shortening *18 % 29-45 LV posterior wall, ED 9.67 mm 6-11 Septal/posterior wall ratio, ED 1 Relative wall thickness, ED 0.38 <0.45 Volume, ED, Teichholz 121 ml Volume, ES, Teichholz 75.1 ml Ejection fraction, Teichholz *37.9 % 64-83 Stroke volume, Teichholz 45.9 ml Volume index, ED, Teichholz 70 ml/m^2 Volume index, ES, Teichholz 43 ml/m^2 Stroke index, Teichholz 26.5 ml/m^2 Wall mass 176.9 g Wall mass index 102.2 g/m^2 Mass/height 1.04 g/cm Ventricular septum Septal thickness, ED 9.67 mm Aortic valve Leaflet separation 20 mm 15-26 Aorta Root diameter, ED 28 mm 20-37 DOPPLER MEASUREMENTS ADULT NORMAL Aortic valve Peak velocity, S 102 cm/s Valve area, Vmax 2.46 cm^2 Valve area index, Vmax 1.42 cm^2/m^2 Mitral valve Peak E-wave velocity 59.7 cm/s Peak A-wave velocity 57.8 cm/s Pressure half-time 47 ms Peak E/A ratio 1 Valve area, pressure half-time 4.68 cm^2 Valve area index, pressure half-time 2.71 cm^2/m^2 Tricuspid valve Peak gradient, D 10 mm Hg Maximal inflow velocity 160 cm/s Pulmonic valve Peak velocity, S 70.6 cm/s Acceleration time 306 ms LEGEND: Mean values are shown as u=mean value. Asterisk (*) olivares values outside specified normal range. Prepared and signed by Alix Perez [id number]
--- NOTE | 2017-03-17 16:13 | EKG ---
Date Performed: 03/16/2017 Time Performed: 16:49:19 PTAGE: 62 years EKG: Sinus rhythm POSSIBLE LEFT ATRIAL ENLARGEMENT BORDERLINE ECG WARNING: DATA QUALITY MAY AFFECT INTERPRETATION PREVIOUS TRACING : 02/24/2016 20.24 Compared to prior tracing no significant change DOCTOR: Alix Perez Interpretating Date/Time 03/17/2017 16:12:05
[2017-03-17] MEDS ORDERED: OLANZapine 5 MG TAB PO SCH (21:00)
== END 2017-03-17 15:17 | disposition left against medical advice (07) ==
LOC: NEPC 16:34 → NEDA 20:59 → NEPGCP 22:35
PROVIDERS: ADMIT Internal Medicine; ATTEND Internal Medicine
DX: R55 Syncope and collapse (principal); E86.0 Dehydration; I95.9 Hypotension, unspecified; E87.5 Hyperkalemia; F19.10 Other psychoactive substance abuse, uncomplicated; M54.5 Low back pain; I10 Essential (primary) hypertension; K72.90 Hepatic failure, unspecified without coma; B19.20 Unspecified viral hepatitis C without hepatic coma; G89.29 Other chronic pain; J44.9 Chronic obstructive pulmonary disease, unspecified; F10.10 Alcohol abuse, uncomplicated; K44.9 Diaphragmatic hernia without obstruction or gangrene; F17.200 Nicotine dependence, unspecified, uncomplicated; Z87.442 Personal history of urinary calculi; Z85.72 Personal history of non-Hodgkin lymphomas
CPT/HCPCS: 70450; 71010; 80053; 80307; 81001; 82550; 83735; 84132; 84443; 84484; 85025; 85610; 85730; 93005; 93306; 96360; 97162; 99285; G0378; G8987; G8988; J7030

== ENCOUNTER 2017-04-16 10:36 | Emergency (ER) | payer OTHER ==
[~2017-04-16] VITALS: Ht 170.2 cm; Wt 60.0 kg
[2017-04-16 10:40] VITALS: BP 93/54; PULSE 80; RESP 14; TEMP 98.2; O2SAT 98
[2017-04-16 10:58] VITALS: BP 102/76; PULSE 75; RESP 16; TEMP 98.1; O2SAT 93
[2017-04-16] MEDS ORDERED: SODIUM CHLORIDE 0.9% FLUSH 10 ML FLUSH IV FLUSH PRN (11:00)
[2017-04-16 11:04] VITALS: BP 102/76; PULSE 75; RESP 16; TEMP 98.1; O2SAT 93
[2017-04-16 11:33] LABS: AUTOMATED NEUTROPHIL # 3.5 TH/MM3 (1.8-7.7); BASOPHIL % 0.2 % (0.0-2.0); EOSINOPHIL % 0.2 % (0.0-4.0); HEMATOCRIT 45.2 % (39.0-51.0); HEMO FLAGS DIFF FINAL; LYMPH % 8.8 % (9.0-44.0); LYMPHOCYTE # 0.4 TH/MM3 (1.0-4.8); MEAN CELL VOLUME 88.5 FL (80.0-100.0); MEAN CORPUSCULAR HEMOGLOBIN 29.5 PG (27.0-34.0); MEAN CORPUSCULAR HGB CONC 33.3 % (32.0-36.0); MONO % 15.9 % (0.0-8.0); NEUT % 74.9 % (16.0-70.0); PLATELET COUNT 165 TH/MM3 (150-450); RED BLOOD COUNT 5.11 MIL/MM3 (4.50-5.90); RED CELL DISTRIBUTION WIDTH 14.5 % (11.6-17.2); WHITE BLOOD COUNT 4.7 TH/MM3 (4.0-11.0)
[2017-04-16 11:48] LABS: APTT (PATIENT) 27.2 SEC (24.3-30.1); PROTHROMBIN TIME - PATIENT 11.2 SEC (9.8-11.6)
[2017-04-16 11:50] LABS: ANION GAP 11 MEQ/L (5-15); AST (GOT) 43 U/L (15-37); BICARBONATE 24.8 MEQ/L (21.0-32.0); BLOOD UREA NITROGEN 43 MG/DL (7-18); CHLORIDE 98 MEQ/L (98-107); GLOMERULAR FILTRATION RATE 54 ML/MIN (>89); POTASSIUM 3.8 MEQ/L (3.5-5.1); SODIUM (NA) 134 MEQ/L (136-145)
[2017-04-16 11:51] LABS: ACETAMINOPHEN LESS THAN 2.0 MCG/ML (10.0-30.0); ALT (GPT) 57 U/L (12-78)
[2017-04-16 11:53] LABS: ALKALINE PHOSPHATASE 194 U/L (45-117); TOTAL BILIRUBIN ADULT 0.5 MG/DL (0.2-1.0)
--- NOTE | 2017-04-16 11:53 | RADRPT ---
EXAM DATE/TIME: 04/16/2017 11:34 [place] COMPARISON: CT BRAIN W/O CONTRAST, March 16, 2017, 18:48. INDICATIONS : Dizziness and loss of appetite. RADIATION DOSE: 56.38 CTDIvol (mGy) MEDICAL HISTORY : Hypertension. Lymphoma. dementia, copd, SURGICAL HISTORY : None. ENCOUNTER: Initial ACUITY: 1 week PAIN SCALE: 1/10 LOCATION: cranial TECHNIQUE: Multiple contiguous axial images were obtained of the head. Using automated exposure control and adj ustment of the mA and/or kV according to patient size, radiation dose was kept as low as reasonably a chievable to obtain optimal diagnostic quality images. FINDINGS: CEREBRUM: The ventricles are normal for age. No evidence of midline shift, mass lesion, hemorrhage or acute in farction. No extra-axial fluid collections are seen. POSTERIOR FOSSA: The cerebellum and brainstem are intact. The 4th ventricle is midline. The cerebellopontine angle i s unremarkable. EXTRACRANIAL: The visualized portion of the orbits is intact. SKULL: The calvaria is intact. No evidence of skull fracture. CONCLUSION: Negative for an acute process. Josse Sands MD FACR on April 16, 2017 at 11:50 Board Certified Radiologist. This report was verified electronically.
[2017-04-16] MEDS ORDERED: SODIUM CHLOR 0.9% 1000 ML INJ 1,000 ML IV ONE ×2 (12:15→13:00)
[2017-04-16 13:00] VITALS: BP 99/67; PULSE 74; RESP 18; O2SAT 94
[2017-04-16 14:24] LABS: AMPHETAMINE, URINE NEG (NEG); BARBITURATES, URINE NEG (NEG); COCAINE, URINE POS (NEG)
--- NOTE | 2017-04-16 14:24 | EKG ---
Date Performed: 04/16/2017 Time Performed: 11:06:51 PTAGE: 62 years EKG: Sinus rhythm Since previous tracing, no significant change noted NORMAL ECG PREVIOUS TRACING : 03/16/2017 16.49 DOCTOR: Abelardo Vela Interpretating Date/Time 04/16/2017 14:19:40
--- NOTE | 2017-04-16 14:31 | PD ---
HPI Chief Complaint: General Weakness Time Seen by Provider: 10:50 Travel History International Travel<30 days: No Contact w/Intl Traveler<30days: No Traveled to known affect area: No History of Present Illness HPI The patient 62 years old. He complains of generalized weakness as well as a dizziness sensation which she feels most notably upon standing. He's had decreased appetite. He states it feels like he has liver failure. He reports a history of cirrhosis. He describes a sensation as if he is losing his balance both due to dizziness and weakness in the lower extremities. He denies routine alcohol use however reports drinking beer on occasion. He reports taking prescribed Dilaudid for chronic back pain. He denies drug abuse otherwise. PFSH Past Medical History Arthritis: No Asthma: No Autoimmune Disease: No Blood Disorders: No Bipolar Disorder: Yes ( ) Anxiety: Yes Depression: Yes Heart Rhythm Problems: No Cancer: Yes (lymphoma remission) Cardiovascular Problems: No High Cholesterol: No Chemotherapy: Yes Chest Pain: No Congestive Heart Failure: No Cirrhosis: Yes (LIVER FAILURE) COPD: Yes Cerebrovascular Accident: No Diabetes: No Diminished Hearing: No Endocrine: No Gastrointestinal Disorders: Yes GERD: No Genitourinary: No Headaches: No Hepatitis: Yes (C) Hiatal Hernia: Yes Heparin Induced Thrombocytopen: No Hypertension: Yes Immune Disorder: No Kidney Stones: Yes Musculoskeletal: Yes (CHRONIC LOW BACK PAIN) Neurologic: No Psychiatric: Yes Reproductive: No Respiratory: Yes (COPD) Migraines: No Myocardial Infarction: No Radiation Therapy: Yes Renal Failure: No Seizures: No Sickle Cell Disease: No Sleep Apnea: No Thyroid Disease: No Ulcer: No PNEUMOCCOCAL Vaccine (Year): 2 Past Surgical History Abdominal Surgery: Yes (HERNIA REPAIR) AICD: No Cardiac Surgery: No Ear Surgery: No Endocrine Surgery: No Eye Surgery: No Genitourinary Surgery: No Gynecologic Surgery: No Insulin Pump: No Joint Replacement: No Neurologic Surgery: No Oral Surgery: No Pacemaker: No Thoracic Surgery: No Other Surgery: Yes ("left chest port removed and g-tube removed years ago") Social History Alcohol Use: Yes (occu. hx of alcohol abuse) Tobacco Use: Yes (1/2 ppd) Substance Use: Yes Allergies-Medications (Allergen,Severity, Reaction): Coded Allergies: Morphine (Verified Allergy, Severe, Hives, 04/16/17) *MDRO Multi-Drug Resistant Organism (Verified Adverse Reaction, Unknown, ) MRSA PCR Screen positive 09/10/15. Reported Meds & Prescriptions Reported Meds & Active Scripts Active Zyprexa (Olanzapine) 5 Mg Tab 5 Mg PO HS Prozac (Fluoxetine HCl) 40 Mg Cap 40 Cap PO HS PRN Review of Systems Except as stated in HPI: all other systems reviewed are Neg Physical Exam Narrative GENERAL: 62-year-old male well-nourished well-developed no acute distress SKIN: Focused skin assessment warm/dry. HEAD: Atraumatic. Normocephalic. EYES: Pupils equal and round. No scleral icterus. No injection or drainage. ENT: No nasal bleeding or discharge. Mucous membranes pink and moist. NECK: Trachea midline. No JVD. CARDIOVASCULAR: Regular rate and rhythm. No murmur appreciated. RESPIRATORY: No accessory muscle use. Clear to auscultation. Breath sounds equal bilaterally. GASTROINTESTINAL: Abdomen soft, non-tender, nondistended. Hepatic and splenic margins not palpable. MUSCULOSKELETAL: No obvious deformities. No clubbing. No cyanosis. No edema. NEUROLOGICAL: Patient has a normal gait. Cranial nerves III through XII are normal. Speech memory mentation normal. PSYCHIATRIC: Appropriate mood and affect; insight and judgment normal. Data Data Last Documented VS Vital Signs Date Time Temp Pulse Resp B/P Pulse Ox O2 Delivery O2 Flow Rate FiO2 04/16/17 16:02 82 18 128/84 98 04/16/17 13:00 Nasal Cannula 2 04/16/17 11:04 98.1 Vital signs reviewed Orders Complete Blood Count With Diff (04/16/17 10:55) Comprehensive Metabolic Panel (04/16/17 10:55) Lipase (04/16/17 10:55) Prothrombin Time / Inr (Pt) (04/16/17 10:55) Act Partial Throm Time (Ptt) (04/16/17 10:55) Iv Access Insert/Monitor (04/16/17 10:55) Ecg Monitoring (04/16/17 10:55) Oximetry (04/16/17 10:55) Sodium Chloride 0.9% Flush (Ns Flush) (04/16/17 11:00) Ammonia (04/16/17 10:55) Ct Brain W/O Iv Contrast(Rout) (04/16/17 10:55) Drug Screen, Random Urine (04/16/17 10:55) Alcohol (Ethanol) (04/16/17 10:55) Salicylates (Aspirin) (04/16/17 10:55) Tylenol (Acetaminophen) (04/16/17 10:55) Electrocardiogram (04/16/17 11:06) Sodium Chlor 0.9% 1000 Ml Inj (Ns 1000 M (04/16/17 12:15) Sodium Chlor 0.9% 1000 Ml Inj (Ns 1000 M (04/16/17 13:00) Labs Laboratory Tests Test 04/16/17 04/16/17 11:15 14:00 White Blood Count 4.7 TH/MM3 Red Blood Count 5.11 MIL/MM3 Hemoglobin 15.1 GM/DL Hematocrit 45.2 % Mean Corpuscular Volume 88.5 FL Mean Corpuscular Hemoglobin 29.5 PG Mean Corpuscular Hemoglobin 33.3 % Concent Red Cell Distribution Width 14.5 % Platelet Count 165 TH/MM3 Mean Platelet Volume 8.7 FL Neutrophils (%) (Auto) 74.9 % Lymphocytes (%) (Auto) 8.8 % Monocytes (%) (Auto) 15.9 % Eosinophils (%) (Auto) 0.2 % Basophils (%) (Auto) 0.2 % Neutrophils # (Auto) 3.5 TH/MM3 Lymphocytes # (Auto) 0.4 TH/MM3 Monocytes # (Auto) 0.7 TH/MM3 Eosinophils # (Auto) 0.0 TH/MM3 Basophils # (Auto) 0.0 TH/MM3 CBC Comment DIFF FINAL Differential Comment Prothrombin Time 11.2 SEC Prothromb Time International 1.0 RATIO Ratio Activated Partial 27.2 SEC Thromboplast Time Sodium Level 134 MEQ/L Potassium Level 3.8 MEQ/L Chloride Level 98 MEQ/L Carbon Dioxide Level 24.8 MEQ/L Anion Gap 11 MEQ/L Blood Urea Nitrogen 43 MG/DL Creatinine 1.35 MG/DL Estimat Glomerular Filtration 54 ML/MIN Rate Random Glucose 104 MG/DL Calcium Level 8.6 MG/DL Total Bilirubin 0.5 MG/DL Aspartate Amino Transf 43 U/L (AST/SGOT) Alanine Aminotransferase 57 U/L (ALT/SGPT) Alkaline Phosphatase 194 U/L Ammonia 15 MCMOL/L Total Protein 8.4 GM/DL Albumin 2.7 GM/DL Lipase 86 U/L Salicylates Level 3.7 MG/DL Acetaminophen Level LESS THAN 2.0 MCG/ML Ethyl Alcohol Level LESS THAN 3 MG/DL Urine Opiates Screen POS Urine Barbiturates Screen NEG Urine Amphetamines Screen NEG Urine Benzodiazepines Screen NEG Urine Cocaine Screen POS Urine Cannabinoids Screen NEG MDM Medical Decision Making Medical Screen Exam Complete: Yes Emergency Medical Condition: Yes Medical Record Reviewed: Yes Differential Diagnosis Cirrhosis, liver failure, cerebral atrophy, electrolyte abnormality, metabolic abnormality Narrative Course CBC & BMP Diagram 04/16/17 11:15 AST 43 Alk phos 194 Ammonia 15 Albumin 2.7 EtOH < 3 APAP < 2.0 Salicylates 3.7 EKG: sinus rate 72 normal axis/intervals Drug screen positive for cocaine and opioids The patient is resting comfortably and feels better, is alert and in no distress. The patients results and examination findings were discussed. The repeat examination is unremarkable and benign. The history, exam, diagnostic testing, and current condition do not suggest any significant pathology to warrant further testing, continued ED treatment, admission, or surgical evaluation at this point. The vital signs have been stable. The patient does not have uncontrollable pain, intractable vomiting, or other significant symptoms. The patient's condition is stable and appropriate for discharge. The patient will pursue further outpatient evaluation with a primary care physician or other designated or consulting physician as indicated in the discharge instructions. The patient expressed understanding and was agreeable with this plan. Diagnosis Primary Impression: Dizziness Additional Impressions: Weakness Cocaine abuse Adverse effect of other opioids, subsequent encounter Referrals: DR ADAME 2 days Additional Instructions: You have a choice when it comes to health care, and we are glad that you chose [facility]. Hopefully, we have met your expectations on today's visit. You are welcome to return to [facility] at any time, as we are committed to meeting the health care needs of our community. Med/Other Pt SpecificInfo: No Change to Meds Disposition: 01 DISCHARGE HOME Condition: Stable Samuel Garcia MD Apr 16, 2017 14:30
[2017-04-16 16:02] VITALS: BP 128/84
== END 2017-04-16 16:03 | disposition home or self-care (01) ==
LOC: NEPE 10:36
DX: R42 Dizziness and giddiness (principal); R53.1 Weakness; G89.29 Other chronic pain; M54.9 Dorsalgia, unspecified; B19.20 Unspecified viral hepatitis C without hepatic coma; I10 Essential (primary) hypertension; J44.9 Chronic obstructive pulmonary disease, unspecified; F17.210 Nicotine dependence, cigarettes, uncomplicated; Z79.891 Long term (current) use of opiate analgesic
CPT/HCPCS: 70450; 80053; 80307; 82140; 83690; 85025; 85610; 85730; 93005; 96360; 99285; J7030

== ENCOUNTER 2017-05-08 02:07 | Inpatient (IN) | payer OTHER ==
[~2017-05-08] VITALS: Ht 170.2 cm; Wt 60.7 kg
[2017-05-08] VITALS (11 sets, daily range): BP systolic 108–148; BP diastolic 73–108; PULSE 64–86; RESP 16–24; TEMP 96.1–98; O2SAT 91–97
[2017-05-08] MEDS ORDERED: DILA4TAB2 PO (02:12)
[2017-05-08] MEDS ORDERED: SODIUM CHLORIDE 0.9% FLUSH 10 ML FLUSH IVF PRN (02:30)
[2017-05-08] MEDS ORDERED: methylPREDNISolone SOD SUCC 125 MG/2 ML VIAL IVP ONE (02:30)
[2017-05-08] MEDS: RESP: ALBUTEROL 2.5 MG/IPRATROPIUM 0.5 MG NEB (SCH) INH (02:35)
--- NOTE | 2017-05-08 02:44 | RADRPT ---
EXAM DATE/TIME: 05/08/2017 02:21 [facility] COMPARISON: CHEST SINGLE AP, March 16, 2017, 18:39. INDICATIONS : Shortness of breath. MEDICAL HISTORY : Chronic obstructive pulmonary disease. Hypertension. Lymphoma. SURGICAL HISTORY : None. ENCOUNTER: Initial ACUITY: 1 day PAIN SCORE: 0/10 LOCATION: Bilateral chest FINDINGS: Trace bibasilar atelectasis noted. No pleural effusion or pneumothorax. Heart size stable, within nor mal limits. Nothing to suggest mediastinal adenopathy. CONCLUSION: Mild bibasilar atelectasis. Juventino Novak MD on May 08, 2017 at 2:41 Board Certified Radiologist. This report was verified electronically.
--- NOTE | 2017-05-08 02:47 | PD ---
HPI Chief Complaint: Anxiety Time Seen by Provider: 02:16 Travel History International Travel<30 days: No Contact w/Intl Traveler<30days: No Traveled to known affect area: No History of Present Illness HPI The patient is a 62 year old male who presents to the [facility] emergency department with a history of having anxiety and recurrent panic attacks since 7 PM this evening. He reports that his symptoms include palpitations, chest tightness, and shortness of breath. He ran out of his Zyprexa and Prozac 2 days ago. He reports that he has it at the pharmacy, however he had no ride to get the prescription filled. The patient additionally reports that he has chronic back pain and is followed by a physician in [place] for his pain management. He reports that he has also run out of his Dilaudid. The patient reports having a history of COPD. He denies having any prior history of heart disease. He cannot recall if he has ever a stress test done previously. The patient was brought in by ambulance services and was noted to have O2 saturations on room air of 89%. The patient was placed on 2 L nasal cannula prior to arrival. The patient reports having a chronic cough, however his cough has been more productive of yellow sputum. Condition additionally reports that he has had swelling in his legs that is new over the last 1-2 weeks. He reports that his shortness of breath gets worse with lying flat. The patient reports that he continues to smoke a half pack of cigarettes per day. He denies using any inhalers or nebulizer treatments for his COPD. On review of systems, the patient denies having any recent fevers although he has had chills. He denies having any abdominal pain, vomiting, diarrhea, urinary symptoms, or neurologic symptoms. [facility] Past Medical History Narrative Medical The patient's past medical history is significant for history of hepatitis C, anxiety and depression, Lymphoma- 2002, chronic back pain,COPD, Dr. Rose-PCP Pain management-a doc in [place]. Arthritis: No Asthma: No Autoimmune Disease: No Blood Disorders: No Bipolar Disorder: Yes ( ) Anxiety: Yes Depression: Yes Heart Rhythm Problems: No Cancer: Yes (LYMPHOMA (IN REMISSION FOR "A WHILE")) Cardiovascular Problems: No High Cholesterol: No Chemotherapy: Yes Chest Pain: No Congestive Heart Failure: No Cirrhosis: Yes (LIVER FAILURE) COPD: Yes Cerebrovascular Accident: No Diabetes: No Diminished Hearing: No Endocrine: No Gastrointestinal Disorders: Yes GERD: No Genitourinary: No Headaches: No Hepatitis: Yes (C) Hiatal Hernia: Yes Heparin Induced Thrombocytopen: No Hypertension: Yes Immune Disorder: No Kidney Stones: Yes Musculoskeletal: Yes (CHRONIC LOW BACK PAIN) Neurologic: No Psychiatric: Yes Reproductive: No Respiratory: Yes (COPD) Migraines: No Myocardial Infarction: No Radiation Therapy: Yes (HX) Renal Failure: No Seizures: No Sickle Cell Disease: No Sleep Apnea: No Thyroid Disease: No Ulcer: No Influenza Vaccination: No PNEUMOCCOCAL Vaccine (Year): 2 Past Surgical History Narrative Surgical The patient's past surgical history is significant for a g tube placement and removal, left infusaport, hernia repair. Abdominal Surgery: Yes (HERNIA REPAIR) AICD: No Cardiac Surgery: No Ear Surgery: No Endocrine Surgery: No Eye Surgery: No Genitourinary Surgery: No Gynecologic Surgery: No Insulin Pump: No Joint Replacement: No Neurologic Surgery: No Oral Surgery: No Pacemaker: No Thoracic Surgery: No Other Surgery: Yes ("left chest port removed and g-tube removed years ago") Social History Alcohol Use: Yes (OCCASIONALLY, 2 BEERS TONIGHT) Tobacco Use: Yes (1/2 ppd) Substance Use: No Allergies-Medications (Allergen,Severity, Reaction): Coded Allergies: Morphine (Verified Allergy, Severe, Hives, 05/08/17) *MDRO Multi-Drug Resistant Organism (Verified Adverse Reaction, Unknown, ) MRSA PCR Screen positive 09/10/15. Reported Meds & Prescriptions Reported Meds & Active Scripts Active Zyprexa (Olanzapine) 5 Mg Tab 5 Mg PO HS Prozac (Fluoxetine HCl) 40 Mg Cap 40 Cap PO HS PRN Reported Dilaudid (Hydromorphone HCl) 4 Mg Tab 4 Mg PO Q6H PRN Review of Systems Except as stated in HPI: all other systems reviewed are Neg General / Constitutional: No: Fever Eyes: No: Visual changes HENT: No: Headaches Cardiovascular: Positive: Chest Pain or Discomfort, Palpitations Respiratory: Positive: Cough, Shortness of Breath Gastrointestinal: No: Nausea, Vomiting, Diarrhea, Abdominal Pain, Hematemesis, Hematochezia, Changes in Bowel Habits, Loss of Appetite Genitourinary: No: Dysuria Musculoskeletal: No: Pain Skin: No Rash Neurologic: No: Weakness Psychiatric: Positive: Anxiety, Mood Disorder, No: Depression, Suicidal Ideations, Homicidal Ideation Endocrine: No: Polydipsia Hematologic/Lymphatic: No: Easy Bruising Physical Exam Narrative General: The patient is a well-developed well-nourished male, anxious appearing on my arrival to the room is saturating 93-94% on 2 L nasal cannula O2. The O2 was discontinued while I was in the room to evaluate for continued hypoxia on room air. The patient was noted to desaturate down to 88%. Head and Neck exam: Head is normocephalic atraumatic. Eyes: EOMI, pupils are equal round and reactive to light. Nose: Midline septum with pink mucous membranes Mouth: Dentition unremarkable. Moist mucus membranes. Posterior oropharynx is not erythematous. No tonsillar hypertrophy. Uvula midline. Airway patent. Neck: No palpable lymphadenopathy. No nuchal rigidity. No thyromegaly. Cardiovascular: Regular rate and rhythm without murmurs, gallops, or rubs. Lungs: The patient had diminished breath sounds in bilateral lung bases with crackles audible in the right lower lung field. No rhonchi or wheezing. Abdomen: Soft, without tenderness to palpation in all 4 quadrants of the abdomen. No guarding, rebound, or rigidity. Normal bowel sounds are audible. No tenderness on palpation of McBurney's point. Negative Overton sign. Extremities: No clubbing or cyanosis. The patient has 1+ pitting edema bilateral lower extremities. 2+ pulses in all 4 extremities. No calf tenderness on palpation. Back: No costovertebral angle tenderness to palpation. Neurologic Exam: Grossly nonfocal. Skin Exam: No rash noted. Intact skin that is warm and dry. Data Data Last Documented VS Vital Signs Date Time Temp Pulse Resp B/P Pulse Ox O2 Delivery O2 Flow Rate FiO2 05/08/17 05:00 78 16 108/73 95 Nasal Cannula 2 05/08/17 02:12 98.0 Orders Complete Blood Count With Diff (05/08/17 02:25) Comprehensive Metabolic Panel (05/08/17 02:25) B-Type Natriuretic Peptide (05/08/17 02:25) D-Dimer (05/08/17 02:25) Act Partial Throm Time (Ptt) (05/08/17 02:25) Prothrombin Time / Inr (Pt) (05/08/17 02:25) Magnesium (Mg) (05/08/17 02:25) Ckmb (Isoenzyme) Profile (05/08/17 02:25) Troponin I (05/08/17 02:25) Urinalysis - C+S If Indicated (05/08/17 02:25) Iv Access Insert/Monitor (05/08/17 02:25) Electrocardiogram (05/08/17 02:25) Ecg Monitoring (05/08/17 02:25) Oximetry (05/08/17 02:25) Oxygen Administration (05/08/17 02:25) Chest, Single Ap (05/08/17 02:25) Sodium Chloride 0.9% Flush (Ns Flush) (05/08/17 02:30) Methylprednisolone So Succ Inj (Solumedr (05/08/17 02:30) Albuterol-Ipratropium Neb (Duoneb Neb) (05/08/17 02:30) Lorazepam Inj (Ativan Inj) (05/08/17 03:15) Ct Pulmonary Angiogram (05/08/17 03:52) Iohexol 350 Inj (Omnipaque 350 Inj) (05/08/17 04:29) Ondansetron Inj (Zofran Inj) (05/08/17 05:00) Admit Order (Ed Use Only) (05/08/17 05:02) Ceftriaxone Inj (Rocephin Inj) (05/08/17 05:15) Azithromycin Inj (Zithromax Inj) (05/08/17 05:15) Blood Culture (05/08/17 05:02) Lactic Acid Sepsis Protocol (05/08/17 05:02) Labs Laboratory Tests Test 05/08/17 02:30 White Blood Count 6.8 TH/MM3 Red Blood Count 4.04 MIL/MM3 Hemoglobin 11.9 GM/DL Hematocrit 36.1 % Mean Corpuscular Volume 89.3 FL Mean Corpuscular Hemoglobin 29.5 PG Mean Corpuscular Hemoglobin 33.1 % Concent Red Cell Distribution Width 14.5 % Platelet Count 201 TH/MM3 Mean Platelet Volume 8.2 FL Neutrophils (%) (Auto) 75.2 % Lymphocytes (%) (Auto) 13.2 % Monocytes (%) (Auto) 9.5 % Eosinophils (%) (Auto) 1.3 % Basophils (%) (Auto) 0.8 % Neutrophils # (Auto) 5.1 TH/MM3 Lymphocytes # (Auto) 0.9 TH/MM3 Monocytes # (Auto) 0.6 TH/MM3 Eosinophils # (Auto) 0.1 TH/MM3 Basophils # (Auto) 0.1 TH/MM3 CBC Comment DIFF FINAL Differential Comment Prothrombin Time 10.8 SEC Prothromb Time International 1.0 RATIO Ratio Activated Partial 27.7 SEC Thromboplast Time D-Dimer Quantitative (PE/DVT) 1.75 MG/L FEU Urine Color LIGHT-YELLOW Urine Turbidity HAZY Urine pH 5.5 Urine Specific [place] 1.005 Urine Protein 30 mg/dL Urine Glucose (UA) NEG mg/dL Urine Ketones NEG mg/dL Urine Occult Blood NEG Urine Nitrite NEG Urine Bilirubin NEG Urine Urobilinogen LESS THAN 2.0 MG/DL Urine Leukocyte Esterase NEG Urine RBC 3 /hpf Urine WBC 3 /hpf Urine Squamous Epithelial 1 /hpf Cells Urine Renal Epithelial Cells <1 /hpf Urine Bacteria RARE /hpf Urine Hyaline Casts 4 /lpf Urine Mucus FEW /lpf Urine Sperm RARE Microscopic Urinalysis Comment CULT NOT INDICATED Sodium Level 135 MEQ/L Potassium Level 4.2 MEQ/L Chloride Level 102 MEQ/L Carbon Dioxide Level 26.6 MEQ/L Anion Gap 6 MEQ/L Blood Urea Nitrogen 8 MG/DL Creatinine 0.72 MG/DL Estimat Glomerular Filtration 111 ML/MIN Rate Random Glucose 83 MG/DL Calcium Level 8.2 MG/DL Magnesium Level 1.7 MG/DL Total Bilirubin 0.3 MG/DL Aspartate Amino Transf 18 U/L (AST/SGOT) Alanine Aminotransferase 15 U/L (ALT/SGPT) Alkaline Phosphatase 87 U/L Total Creatine Kinase 93 U/L Troponin I LESS THAN 0.02 NG/ML B-Type Natriuretic Peptide 49 PG/ML Total Protein 7.8 GM/DL Albumin 2.6 GM/DL [facility] Medical Decision Making Medical Screen Exam Complete: Yes Emergency Medical Condition: Yes Medical Record Reviewed: Yes Interpretation(s) Last Impressions CT Angiography 05/08/17 0352 Signed Impressions: Service Date/Time: Monday, May 08, 2017 04:21 - CONCLUSION: 1. No pulmonary embolus. 2. The findings soft tissue mass of the right hilum, either a darlene mass or a central primary bronchogenic carcinoma most likely. There is post obstructive pneumonia in the right lower lobe. 3. A modestly suspicious subpleural mass is also seen posteriorly in the left lower lobe. 4. There is subcarinal and bilateral axillary lymphadenopathy. 5. Coronary artery calcification. Juventino Novak MD Chest X-Ray 05/08/17 0225 Signed Impressions: Service Date/Time: Monday, May 08, 2017 02:21 - CONCLUSION: Mild bibasilar atelectasis. Juventino Novak MD Differential Diagnosis Acute coronary syndrome, versus anxiety disorder, versus COPD exacerbation, versus pneumonia, versus new-onset congestive heart failure, versus pulmonary embolism Narrative Course During the course of the patients emergency department visit, the patients history, examination, and differential diagnosis were reviewed with the patient. The patient had IV access obtained and blood work sent for analysis. The patient was placed on a radiation monitor with oximetry and blood pressure monitoring. An ECG was done on arrival. The patient's ECG reveals a heart rate of 74, sinus rhythm, QRS duration is 84 ms, QTC is 413 ms, no acute ST segment elevation or depression is noted. T waves are inverted in V1. The patient was initially provided Solu-Medrol 125 mg IV, DuoNeb 3, Ativan 0.5 mg IV for anxiety. The patient was placed back on 2 L nasal cannula O2. The patients laboratory studies were reviewed and remarkable for a white count of 6.8, hemoglobin 11.9, platelets 201 with 75.2 neutrophils, monocytes 9.5. CMP is remarkable for sodium of 135, calcium 8.2, CPK 93, troponin I less than 0.02, BNP 49, albumin 2.6, lactic acid 0.7, PT PTT within normal limits, d- dimer is 1.75, therefore CTA to rule out PE was ordered. Urinalysis shows 30 protein, rare bacteria, otherwise unremarkable Radiology studies were reviewed and remarkable for a chest x-ray that shows mild bibasilar atelectasis, no other acute abnormality. CTA to rule out PE shows no pulmonary embolism, however there are findings of soft tissue mass of the right hilum, postobstructive pneumonia in the right lower lobe, a modestly suspicious subpleural mass is also seen posteriorly in the left lower lobe. There is some crying all of bilateral axillary lymphadenopathy. The patient has coronary artery calcifications. The patient will be admitted to the hospital for continued evaluation and treatment of a postobstructive pneumonia. The patient was started on Rocephin 1 g IV, Zithromax 500 IV after blood cultures 2 were drawn. The patients results were discussed with the patient, including the plan of care. I explained that further testing and/ or monitoring is indicated based on the patients history, examination, and/ or laboratory findings. Therefore, I recommended admission for additional evaluation. The patient expressed understanding and was agreeable with this plan. The patient was admitted to the hospital in guarded condition and [facility] Physician Communication Physician Communication The patient's case is discussed with Dr. Leroy who did agree to admit the patient for further evaluation and treatment at this time. Diagnosis Primary Impression: Postobstructive pneumonia Additional Impression: Lung mass Admitting Information Admitting Physician Requests: Marianne Link MD May 08, 2017 02:47
[2017-05-08 02:53] LABS: AUTOMATED NEUTROPHIL # 5.1 TH/MM3 (1.8-7.7); BASOPHIL # 0.1 TH/MM3 (0-0.2); BASOPHIL % 0.8 % (0.0-2.0); EOSINOPHIL # 0.1 TH/MM3 (0-0.4); EOSINOPHIL % 1.3 % (0.0-4.0); HEMATOCRIT 36.1 % (39.0-51.0); HEMO FLAGS DIFF FINAL; LYMPH % 13.2 % (9.0-44.0); LYMPHOCYTE # 0.9 TH/MM3 (1.0-4.8); MEAN CELL VOLUME 89.3 FL (80.0-100.0); MEAN CORPUSCULAR HEMOGLOBIN 29.5 PG (27.0-34.0); MEAN CORPUSCULAR HGB CONC 33.1 % (32.0-36.0); MONO % 9.5 % (0.0-8.0); NEUT % 75.2 % (16.0-70.0); PLATELET COUNT 201 TH/MM3 (150-450); RED BLOOD COUNT 4.04 MIL/MM3 (4.50-5.90); RED CELL DISTRIBUTION WIDTH 14.5 % (11.6-17.2); WHITE BLOOD COUNT 6.8 TH/MM3 (4.0-11.0)
[2017-05-08 03:04] LABS: ALT (GPT) 15 U/L (12-78); ANION GAP 6 MEQ/L (5-15); AST (GOT) 18 U/L (15-37); BICARBONATE 26.6 MEQ/L (21.0-32.0); BLOOD UREA NITROGEN 8 MG/DL (7-18); CHLORIDE 102 MEQ/L (98-107); GLOMERULAR FILTRATION RATE 111 ML/MIN (>89); MAGNESIUM 1.7 MG/DL (1.5-2.5); POTASSIUM 4.2 MEQ/L (3.5-5.1); SODIUM (NA) 135 MEQ/L (136-145)
[2017-05-08 03:05] LABS: BACTERIA, URINE RARE /hpf; BLOOD, URINE NEG (NEG); COMMENT (UR) CULT NOT INDICATED; CULTURE IF INDICATED CULT NOT INDICATED; GLUCOSE,URINE NEG (NEG); HYALINE CAST, URINE 4 /lpf (RARE); KETONE, URINE NEG (NEG); MUCUS URINE FEW /lpf (OCC); NITRITE,URINE NEG (NEG); PH, URINE 5.5 (5.0-8.5); RENAL EPITHELIAL CELLS <1 /hpf; SQUAMOUS EPITHELIAL CELL URINE 1 /hpf (0-5); URINE COLOR LIGHT-YELLOW (YELLW/STRAW)
[2017-05-08 03:07] LABS: ALKALINE PHOSPHATASE 87 U/L (45-117); TOTAL BILIRUBIN ADULT 0.3 MG/DL (0.2-1.0)
[2017-05-08 03:09] LABS: CREATINE KINASE 93 U/L (39-308)
[2017-05-08] MEDS ORDERED: LORazepam 2 MG/ML VIAL IV PUSH ONE (03:15)
[2017-05-08 03:24] LABS: APTT (PATIENT) 27.7 SEC (24.3-30.1); PROTHROMBIN TIME - PATIENT 10.8 SEC (9.8-11.6)
[2017-05-08] MEDS ORDERED: IOHEXOL 350 MG/ML 10 ML VIAL (for RAD DIAG) IV ONE (04:29)
--- NOTE | 2017-05-08 04:54 | RADRPT ---
EXAM DATE/TIME: 05/08/2017 04:21 [facility] COMPARISON: No previous studies available for comparison. INDICATIONS : Chest pain with elevated D-Dimer. IV CONTRAST: 70 cc Omnipaque 350 (iohexol) IV RADIATION DOSE: 23.28 CTDIvol (mGy) MEDICAL HISTORY : Hypertension. Chronic obstructive pulmonary disease. Cirrhosis.Renal stones Hep C SURGICAL HISTORY : None. ENCOUNTER: Initial ACUITY: 1 day PAIN SCALE: 7/10 LOCATION: Bilateral chest TECHNIQUE: Volumetric scanning of the chest was performed using a pulmonary embolism protocol MIP images were re constructed. Using automated exposure control and adjustment of the mA and/or kV according to patien t size, radiation dose was kept as low as reasonably achievable to obtain optimal diagnostic quality images. DICOM format image data is available electronically for review and comparison. FINDINGS: Ill-defined soft tissue mass measuring approximately 3.4 cm in size seen in the right infrahilar vonnie on. There is pneumonia in the right lower lobe. An approximately 22 x 26 mm irregular subpleural mass is seen posteriorly in the left lower lobe. A 17 x 30 mm subcarinal lymph node is present. There is no pulmonary embolus. Heart size normal. Coronary artery calcification present. Incidentally seen retroesophageal right sub clavian artery. There appears to be bilateral axillary lymphadenopathy, especially on the left. CONCLUSION: 1. No pulmonary embolus. 2. The findings soft tissue mass of the right hilum, either a darlene mass or a central primary broncho genic carcinoma most likely. There is post obstructive pneumonia in the right lower lobe. 3. A modestly suspicious subpleural mass is also seen posteriorly in the left lower lobe. 4. There is subcarinal and bilateral axillary lymphadenopathy. 5. Coronary artery calcification. Juventino Novak MD on May 08, 2017 at 4:41 Board Certified Radiologist. This report was verified electronically.
[2017-05-08] MEDS ORDERED: ONDANSETRON HCL 4 MG/2 ML VIAL IV ONE (05:00)
[2017-05-08] MEDS ORDERED: NALOXONE HCL 0.4 MG/ML AMP IV PRN (05:15)
[2017-05-08] MEDS ORDERED: cefTRIAXone INJ 1,000 MG in SODIUM CHLORIDE 0.9% INJ 100 ML IV ONE (05:15)
[2017-05-08] MEDS ORDERED: AZITHROMYCIN INJ 500 MG in SODIUM CHLOR 0.9% 250 ML INJ 250 ML IV ONE (05:15)
[2017-05-08] MEDS ORDERED: SODIUM CHLORIDE 0.9% FLUSH 10 ML FLUSH IV FLUSH PRN (05:15)
[2017-05-08] MEDS ORDERED: FLUoxetine HCL 20 MG CAP PO PRN (07:45)
[2017-05-08] MEDS ORDERED: ACETAMINOPHEN 325 MG TAB PO PRN (07:45)
[2017-05-08] MEDS ORDERED: ONDANSETRON HCL 4 MG/2 ML VIAL IV PUSH PRN (07:45)
--- NOTE | 2017-05-08 07:50 | HHI.HP ---
[facility] Service [facility] Primary Care Physician Eric Rose DO Admission Diagnosis Lung mass with postobstructive pneumonia Diagnoses: (1) Lung mass Diagnosis: Principal (2) Postobstructive pneumonia Diagnosis: Principal Chief Complaint: shortness of breath Travel History International Travel<30 Days: No Contact w/Intl Traveler <30 Da: No Traveled to Known Affected Are: No History of Present Illness patient is a 62 y/o male. chronic smoker, with history of COPD who presented to ER with shortness of breath. he says that his sob started a few days ago. he has productive cough of yellowish sputum. he had some fever at home. he reports five-pound weight loss over the past one week.at the time of my evaluation he was resting comfortably with no acute distress. Review of Systems Constitutional: DENIES: Fever, Weight loss, Chills, Night Sweats Eyes: DENIES: Blurred vision, Diplopia, Vision loss, Double Vision Ears, nose, mouth, throat: DENIES: Tinnitus, Vertigo, Throat pain, Epistaxis Respiratory: COMPLAINS OF: Cough, Sputum production, Shortness of breath, DENIES: Apneas, Snoring, Wheezing, Hemoptysis Cardiovascular: DENIES: Chest pain, Palpitations, Syncope, Dyspnea on Exertion , PND, Lower Extremity Edema, Orthopnea, Claudication Gastrointestinal: DENIES: Abdominal pain, Black stools, Bloody stools, Constipation, Diarrhea, Nausea, Vomiting, Difficulty Swallowing, Anorexia Genitourinary: DENIES: Urinary frequency, Urgency, Hematuria, Dysuria Musculoskeletal: DENIES: Joint pain, Muscle aches, Stiffness, Joint Swelling Integumentary: DENIES: Rash Neurologic: DENIES: Abnormal gait, Headache, Localized weakness, Paresthesias, Seizures, Speech Problems, Tremor, Poor Balance Psychiatric: DENIES: Anxiety, Confusion, Mood changes, Depression, Hallucinations, Agitation, Suicidal Ideation, Homicidal Ideation, Delusions Past Family Social History Past Medical History copd panic attacks/ anxiety Past Surgical History none reported Reported Medications Zyprexa (Olanzapine) 5 Mg Tab 5 Mg PO HS Prozac (Fluoxetine HCl) 40 Mg Cap 40 Cap PO HS PRN Dilaudid (Hydromorphone HCl) 4 Mg Tab 4 Mg PO Q6H PRN Allergies: Coded Allergies: Morphine (Verified Allergy, Severe, Hives, 05/08/17) *MDRO Multi-Drug Resistant Organism (Verified Adverse Reaction, Unknown, ) MRSA PCR Screen positive 09/10/15. Active Ordered Medications Current Medications Sodium Chloride (NS Flush) 2 ml UNSCH PRN IVF FLUSH AFTER USING IV ACCESS; Start 05/08/17 at 02:30; Stop 05/08/17 at 05:19; Status DC Methylprednisolone Sodium Succinate (SoluMEDROL INJ) 125 mg ONCE ONCE IVP Last administered on 05/08/17 02:35; Start 05/08/17 at 02:30; Stop 05/08/17 at 02:31; Status DC Albuterol/ Ipratropium (Duoneb Neb) 1 ampule Q15M INH Last administered on 05/08 02:35; Start 05/08/17 at 02:30; Stop 05/08/17 at 02:46; Status DC Lorazepam (Ativan Inj) 0.5 mg ONCE ONCE IV PUSH Last administered on 03:26; Start 05/08/17 at 03:15; Stop 05/08/17 at 03:16; Status DC Iohexol (Omnipaque 350 Inj) 70 ml STK-MED ONCE IV Last administered on 04:29; Start 05/08/17 at 04:29; Stop 05/08/17 at 04:30; Status DC Ondansetron HCl 4 mg 4 mg ONCE ONCE IV ; Start 05/08/17 at 05:00; Stop at 05:02; Status DC Ceftriaxone Sodium 1000 mg/ Sodium Chloride 100 ml @ 200 mls/hr ONCE ONCE IV Last administered on 05/08/17 05:16; Start 05/08/17 at 05:15; Stop 05/08/17 at 05:44; Status DC Azithromycin/ Sodium Chloride (Zithromax Inj/ NS 250 ml Inj) 250 ml @ 250 mls/ hr ONCE ONCE IV Last administered on 05/08/17 05:48; Start 05/08/17 at 05:15 ; Stop 05/08/17 at 06:14; Status DC Sodium Chloride (NS Flush) 2 ml UNSCH PRN IV FLUSH FLUSH AFTER USING IV ACCESS ; Start 05/08/17 at 05:15 Sodium Chloride (NS Flush) 2 ml BID IV FLUSH ; Start 05/08/17 at 09:00 Naloxone HCl (Narcan Inj) 0.4 mg UNSCH PRN IV SEE LABEL COMMENTS; Start at 05:15 Albuterol/ Ipratropium 1 ampule 1 ampule Q4HR NEB PRN NEB wheezing; Start 05/08 at 05:15 Levofloxacin/ Dextrose (Levaquin 750 Mg Premix Inj) 150 ml @ 100 mls/hr Q24H IV ; Start 05/08/17 at 09:00 Family History cancer in the father. Social History smokes half a pack a day- drinks occasionally. Physical Exam Vital Signs Vital Signs Date Time Temp Pulse Resp B/P Pulse Ox O2 Delivery O2 Flow Rate FiO2 05/08/17 06:49 97.3 73 18 133/97 94 05/08/17 05:00 78 16 108/73 95 Nasal Cannula 2 05/08/17 04:00 86 16 130/84 94 Nasal Cannula 2 05/08/17 02:30 97 2.00 05/08/17 02:30 97 Nasal Cannula 2 05/08/17 02:16 76 24 05/08/17 02:12 98.0 72 24 130/89 97 Physical Exam GENERAL: This is a well-nourished, well-developed patient, in no apparent distress. SKIN: No rashes, ecchymoses or lesions. Cool and dry. HEAD: Atraumatic. Normocephalic. No temporal or scalp tenderness. EYES: Pupils equal round and reactive. Extraocular motions intact. No scleral icterus. No injection or drainage. ENT: Nose without bleeding, purulent drainage or septal hematoma. Throat without erythema, tonsillar hypertrophy or exudate. Uvula midline. Airway patent. NECK: Trachea midline. No JVD or lymphadenopathy. Supple, nontender, no meningeal signs. CARDIOVASCULAR: Regular rate and rhythm without murmurs, gallops, or rubs. RESPIRATORY: diminished air entry in the right base GASTROINTESTINAL: Abdomen soft, non-tender, nondistended. No hepato-splenomegaly , or palpable masses. No guarding. MUSCULOSKELETAL: Extremities without clubbing, cyanosis, or edema. No joint tenderness, effusion, or edema noted. No calf tenderness. Negative Homans sign bilaterally. NEUROLOGICAL: Awake and alert. Cranial nerves II through XII intact. Motor and sensory grossly within normal limits. Five out of 5 muscle strength in all muscle groups. Normal speech. Laboratory Laboratory Tests Test 05/08/17 05/08/17 02:30 05:15 White Blood Count 6.8 Red Blood Count 4.04 Hemoglobin 11.9 Hematocrit 36.1 Mean Corpuscular Volume 89.3 Mean Corpuscular Hemoglobin 29.5 Mean Corpuscular Hemoglobin 33.1 Concent Red Cell Distribution Width 14.5 Platelet Count 201 Mean Platelet Volume 8.2 Neutrophils (%) (Auto) 75.2 Lymphocytes (%) (Auto) 13.2 Monocytes (%) (Auto) 9.5 Eosinophils (%) (Auto) 1.3 Basophils (%) (Auto) 0.8 Neutrophils # (Auto) 5.1 Lymphocytes # (Auto) 0.9 Monocytes # (Auto) 0.6 Eosinophils # (Auto) 0.1 Basophils # (Auto) 0.1 CBC Comment DIFF FINAL Differential Comment Prothrombin Time 10.8 Prothromb Time International 1.0 Ratio Activated Partial 27.7 Thromboplast Time D-Dimer Quantitative (PE/DVT) 1.75 Urine Color LIGHT-YELLOW Urine Turbidity HAZY Urine pH 5.5 Urine Specific Spencer 1.005 Urine Protein 30 Urine Glucose (UA) NEG Urine Ketones NEG Urine Occult Blood NEG Urine Nitrite NEG Urine Bilirubin NEG Urine Urobilinogen LESS THAN 2.0 Urine Leukocyte Esterase NEG Urine RBC 3 Urine WBC 3 Urine Squamous Epithelial 1 Cells Urine Renal Epithelial Cells <1 Urine Bacteria RARE Urine Hyaline Casts 4 Urine Mucus FEW Urine Sperm RARE Microscopic Urinalysis Comment CULT NOT INDICATED Sodium Level 135 Potassium Level 4.2 Chloride Level 102 Carbon Dioxide Level 26.6 Anion Gap 6 Blood Urea Nitrogen 8 Creatinine 0.72 Estimat Glomerular Filtration 111 Rate Random Glucose 83 Calcium Level 8.2 Magnesium Level 1.7 Total Bilirubin 0.3 Aspartate Amino Transf 18 (AST/SGOT) Alanine Aminotransferase 15 (ALT/SGPT) Alkaline Phosphatase 87 Total Creatine Kinase 93 Troponin I LESS THAN 0.02 B-Type Natriuretic Peptide 49 Total Protein 7.8 Albumin 2.6 Lactic Acid Level 0.7 Date/Time Procedure Status Source Growth 05/08/17 05:15 Aerobic Blood Culture Received Blood Peripheral Pending 05/08/17 05:15 Anaerobic Blood Culture Received Blood Peripheral Pending Result Diagram: 05/08/17 0230 05/08/17 [address] Angiography 05/08/17 0352 Signed Impressions: Service Date/Time: Monday, May 08, 2017 04:21 - CONCLUSION: 1. No pulmonary embolus. 2. The findings soft tissue mass of the right hilum, either a darlene mass or a central primary bronchogenic carcinoma most likely. There is post obstructive pneumonia in the right lower lobe. 3. A modestly suspicious subpleural mass is also seen posteriorly in the left lower lobe. 4. There is subcarinal and bilateral axillary lymphadenopathy. 5. Coronary artery calcification. Juventino Novak MD Chest X-Ray 05/08/17 0225 Signed Impressions: Service Date/Time: Monday, May 08, 2017 02:21 - CONCLUSION: Mild bibasilar atelectasis. Juventino Novak MD Assessment and Plan Assessment and Plan A/P - lung mass with postobstructive pneumonia CTA chest with no pulmonary embolus. with soft tissue mass of the right hilum , either a darlene mass or a central primary bronchogenic carcinoma most likely. with post obstructive pneumonia in the right lower lobe. and a modestly suspicious subpleural mass is also seen posteriorly in the left lower lobe. with subcarinal and bilateral axillary lymphadenopathy and Coronary artery calcification. continue IV antibiotic and neb treatment- follow the cultures. pulmonary consulted. -COPD- continue neb treatment -anxiety; resume home meds -DVT prophylaxis with SCD's Discussed Condition With the patient and RN. Physician Certification 2 Midnight Certification Type: Admission for Inpatient Services Order for Inpatient Services The services are ordered in accordance with Medicare regulations or non- Medicare payer requirements, as applicable. In the case of services not specified as inpatient-only, they are appropriately provided as inpatient services in accordance with the 2-midnight benchmark. Estimated LOS (days): 3 days is the estimated time the patient will need to remain in the hospital, assuming treatment plan goals are met and no additional complications. Post-Hospital Plan: Home Kiran Brand MD May 08, 2017 07:49
[2017-05-08] MEDS: LEVOFLOXACIN 750 MG PREMIX INJ 150 ML IV SCH (09:50)
[2017-05-08] MEDS: SODIUM CHLORIDE 0.9% FLUSH 10 ML FLUSH IV FLUSH SCH ×2 (09:50→19:34)
--- NOTE | 2017-05-08 10:30 | EKG ---
Date Performed: 05/08/2017 Time Performed: 02:20:10 PTAGE: 62 years EKG: Normal Sinus rhythm Poor R wave progression likely due to lead placement Cannot exclude anteroseptal infarct PREVIOUS TRACING 04/16/2017 No change from the prior tracing DOCTOR: Cruz Jerez Interpretating Date/Time 05/08/2017 10:29:04
[2017-05-08] MEDS ORDERED: ALPRAZolam 0.25 MG TAB PO PRN (12:15)
[2017-05-08] MEDS ORDERED: ACETAMINOPHEN/HYDROcodone 325 MG/5 MG TAB PO PRN (12:15)
[2017-05-08] MEDS: ACETAMINOPHEN/HYDROcodone 325 MG/5 MG TAB PO PRN ×2 (13:43→19:34)
[2017-05-08] MEDS: OLANZapine 5 MG TAB PO SCH (19:33)
--- NOTE | 2017-05-08 21:32 | MB ---
cc: PATRICE KEARNEY DATE OF CONSULTATION 05/08/[address] Brand REASON FOR CONSULTATION Lung infiltrate HISTORY OF PRESENT ILLNESS Mr. Willard is a 62-year-old male with longstanding history of COPD, not taking any medications, history of nicotine use, continues to smoke half a pack of cigarettes a day, history of panic attack. He came to the hospital with worsening of his panic attacks, chest discomfort and shortness of breath. He has occasional cough. No significant sputum production. No fever or chills. No night sweats. No hemoptysis. With these symptoms, he was evaluated in the hospital. He had a CTA of the chest done. It does not show any pulmonary embolism. He has a soft tissue mass in the right hilar, either a darlene mass or a central primary bronchogenic carcinoma. He has post obstructive pneumonia in the right lower lobe. His CBC showed WBC count 6.8, hemoglobin 11.9, hematocrit 36.1, MCV 86. Platelet count 201, Sodium 135, potassium 4.2, chloride 102, CO2 26. BUN 8, creatinine 0.72, INR is 1.0. His blood culture so far is negative. PAST MEDICAL HISTORY 1. History of COPD 2. Panic attack. MEDICATIONS Currently 1. Zyprexa 5 mg a day. 2. Hydrocodone every 6 hours for pain. 3. Xanax 0.2 mg q 8 hr for pain. 4. Levaquin 750 mg a day. 5. Fluoxetine 40 mg a day. 6. Zofran p.r.n. 7. Albuterol/Atrovent nebulizer treatment. ALLERGIES MORPHINE SOCIAL HISTORY He is single. He was before and is . He used to work for [employer]. Long history of smoking and he continues to smoke half to one pack of cigarettes a day. He used to drink heavily which he has cut down now. FAMILY HISTORY He is . He has four children. He lives with a roommate. REVIEW OF SYSTEMS He has lost some weight. Normally he is up, around and active. Follows Dr. Wilbur Rose. No hemoptysis. No DVT or pulmonary embolismn. No seizure, stroke or epilepsy. PHYSICAL EXAMINATION GENERAL: A well built, mildly nourished male, anxious, not in acute distress. VITAL SIGNS: Blood pressure 136/98, heart rate 67, respirations 20, temperature 96.5 HEENT: Pupils are equal and reactive. Oral mucosa and nasal mucosa normal. NECK: Supple. JVP not raised. CHEST: Equal bilateral. He has rales at the right base. CARDIAC: S1, S2 normal. ABDOMEN: Benign. EXTREMITIES: No edema. IMPRESSION 1. COPD. 2. Bronchiectasis with the lung infiltrate, possible postobstructive pneumonitis. 3. Right hilar mass. 4. Nicotine use. 5. History of alcohol use. PLAN I discussed with the patient we will continue antibiotic, check his sputum culture, aerosol treatments with albuterol and Atrovent and we will schedule him for bronchoscopy. Further treatment will depend on the course in the hospital. Thank you, Dr. Brand, for this consultation. MD NAREN Haynes/ /7:23 PM /9:19 PM SERAFIN
[2017-05-09] VITALS: BP 110/73; PULSE 60; PULSE 75; RESP 18; TEMP 96.2; O2SAT 95
[2017-05-09] MEDS: ACETAMINOPHEN/HYDROcodone 325 MG/5 MG TAB PO PRN ×3 (01:06→14:25)
[2017-05-09 04:00] VITALS: BP 110/76; PULSE 62; PULSE 63; RESP 18; TEMP 97; O2SAT 92
[2017-05-09 07:49] LABS: AUTOMATED NEUTROPHIL # 3.9 TH/MM3 (1.8-7.7); BASOPHIL # 0.1 TH/MM3 (0-0.2); HEMO FLAGS DIFF FINAL; LYMPH % 18.9 % (9.0-44.0); MEAN CELL VOLUME 90.5 FL (80.0-100.0); MEAN CORPUSCULAR HEMOGLOBIN 28.6 PG (27.0-34.0); MEAN CORPUSCULAR HGB CONC 31.6 % (32.0-36.0); MONO % 9.2 % (0.0-8.0); NEUT % 70.9 % (16.0-70.0); PLATELET COUNT 193 TH/MM3 (150-450); RED BLOOD COUNT 4.53 MIL/MM3 (4.50-5.90); RED CELL DISTRIBUTION WIDTH 14.6 % (11.6-17.2); WHITE BLOOD COUNT 5.5 TH/MM3 (4.0-11.0)
[2017-05-09 08:00] VITALS: BP 154/108; PULSE 82; PULSE 83; RESP 22; TEMP 97.3; O2SAT 99
--- NOTE | 2017-05-09 08:21 | HHI.PR ---
Subjective Remarks in no acute distress. no sob. has some back pain. afebrile. Objective Vitals Vital Signs Date Time Temp Pulse Resp B/P Pulse Ox O2 Delivery O2 Flow Rate FiO2 05/09/17 04:00 63 05/09/17 04:00 97.0 62 18 110/76 92 05/09/17 00:00 96.2 75 18 110/73 95 05/09/17 00:00 60 05/08/17 21:00 64 05/08/17 20:00 96.1 65 17 124/85 93 05/08/17 15:50 96.5 67 20 136/98 95 05/08/17 11:50 96.8 70 20 135/103 91 05/08/17 11:37 65 I/O 05/08/17 05/08/17 05/08/17 05/09/17 05/09/17 05/09/17 07:00 15:00 23:00 07:00 15:00 23:00 Intake Total 300 ml 240 ml Output Total 0 ml Balance 300 ml 240 ml Intake Oral 300 ml 240 ml Output Stool Total 0 ml # Voids 3 1 3 Result Diagram: 05/09/17 0653 05/08/17 [address] Angiography 05/08/17 0352 Signed Impressions: Service Date/Time: Monday, May 08, 2017 04:21 - CONCLUSION: 1. No pulmonary embolus. 2. The findings soft tissue mass of the right hilum, either a darlene mass or a central primary bronchogenic carcinoma most likely. There is post obstructive pneumonia in the right lower lobe. 3. A modestly suspicious subpleural mass is also seen posteriorly in the left lower lobe. 4. There is subcarinal and bilateral axillary lymphadenopathy. 5. Coronary artery calcification. Juventino Novak MD Chest X-Ray 05/08/17 0225 Signed Impressions: Service Date/Time: Monday, May 08, 2017 02:21 - CONCLUSION: Mild bibasilar atelectasis. Juventino Novak MD Objective Remarks GENERAL: This is a well-nourished, well-developed patient, in no apparent distress. CARDIOVASCULAR: Regular rate and regular rhythm without murmurs, gallops, or rubs. RESPIRATORY: Clear to auscultation. Breath sounds equal bilaterally. No wheezes , rales, or rhonchi. GASTROINTESTINAL: Abdomen soft, non-tender, nondistended. Normal, active bowel sounds MUSCULOSKELETAL: Extremities without clubbing, cyanosis, or edema. NEURO: Alert & Oriented x4 to person, place, time, situation. Moves all ext x4 Procedures none Medications and IVs Current Medications Sodium Chloride (NS Flush) 2 ml UNSCH PRN IVF FLUSH AFTER USING IV ACCESS; Start 05/08/17 at 02:30; Stop 05/08/17 at 05:19; Status DC Methylprednisolone Sodium Succinate (SoluMEDROL INJ) 125 mg ONCE ONCE IVP Last administered on 05/08/17 02:35; Start 05/08/17 at 02:30; Stop 05/08/17 at 02:31; Status DC Albuterol/ Ipratropium (Duoneb Neb) 1 ampule Q15M INH Last administered on 05/08 02:35; Start 05/08/17 at 02:30; Stop 05/08/17 at 02:46; Status DC Lorazepam (Ativan Inj) 0.5 mg ONCE ONCE IV PUSH Last administered on 03:26; Start 05/08/17 at 03:15; Stop 05/08/17 at 03:16; Status DC Iohexol (Omnipaque 350 Inj) 70 ml STK-MED ONCE IV Last administered on 04:29; Start 05/08/17 at 04:29; Stop 05/08/17 at 04:30; Status DC Ondansetron HCl 4 mg 4 mg ONCE ONCE IV ; Start 05/08/17 at 05:00; Stop at 05:02; Status DC Ceftriaxone Sodium 1000 mg/ Sodium Chloride 100 ml @ 200 mls/hr ONCE ONCE IV Last administered on 05/08/17 05:16; Start 05/08/17 at 05:15; Stop 05/08/17 at 05:44; Status DC Azithromycin/ Sodium Chloride (Zithromax Inj/ NS 250 ml Inj) 250 ml @ 250 mls/ hr ONCE ONCE IV Last administered on 05/08/17 05:48; Start 05/08/17 at 05:15 ; Stop 05/08/17 at 06:14; Status DC Sodium Chloride (NS Flush) 2 ml UNSCH PRN IV FLUSH FLUSH AFTER USING IV ACCESS ; Start 05/08/17 at 05:15 Sodium Chloride (NS Flush) 2 ml BID IV FLUSH Last administered on 05/08/17 19: 34; Start 05/08/17 at 09:00 Naloxone HCl (Narcan Inj) 0.4 mg UNSCH PRN IV SEE LABEL COMMENTS; Start at 05:15 Albuterol/ Ipratropium 1 ampule 1 ampule Q4HR NEB PRN NEB wheezing; Start 05/08 at 05:15 Levofloxacin/ Dextrose (Levaquin 750 Mg Premix Inj) 150 ml @ 100 mls/hr Q24H IV Last administered on 05/08/17 09:50; Start 05/08/17 at 09:00 Olanzapine (ZyPREXA) 5 mg HS PO Last administered on 05/08/17 19:33; Start 09/14 at 21:00 Fluoxetine HCl (PROzac) 40 mg HS PRN PO drepression Last administered on 19:33; Start 05/08/17 at 07:45 Acetaminophen (Tylenol) 650 mg Q4H PRN PO FEVER/PAIN 1-3; Start 05/08/17 at 07: 45 Ondansetron HCl (Zofran Inj) 4 mg Q8HR PRN IV PUSH NAUSEA; Start 05/08/17 at 07 :45 Acetaminophen/ Hydrocodone Bitart (Anderson 5-325 Mg) 1 tab Q6H PRN PO PAIN 4-6; Start 05/08/17 at 12:15 Acetaminophen/ Hydrocodone Bitart (Anderson 5-325 Mg) 2 tab Q6H PRN PO PAIN 7-10 Last administered on 05/09/17 01:06; Start 05/08/17 at 12:15 Alprazolam (Xanax) 0.25 mg Q8HR PRN PO ANXIETY Last administered on 05/08/17 13:43; Start 05/08/17 at 12:15 A/P Assessment and Plan A/P - lung mass with postobstructive pneumonia CTA chest with no pulmonary embolus. with soft tissue mass of the right hilum , either a darlene mass or a central primary bronchogenic carcinoma most likely. with post obstructive pneumonia in the right lower lobe. and a modestly suspicious subpleural mass is also seen posteriorly in the left lower lobe. with subcarinal and bilateral axillary lymphadenopathy and Coronary artery calcification. continue IV antibiotic and neb treatment- follow the cultures. pulmonary consult appreciated and plan for bronchoscopy. -COPD- continue neb treatment -anxiety; resumed home meds -DVT prophylaxis with SCD's Kiran Brand MD May 09, 2017 08:21
[2017-05-09] MEDS: SODIUM CHLORIDE 0.9% FLUSH 10 ML FLUSH IV FLUSH SCH ×2 (08:31→20:30)
[2017-05-09] MEDS: LEVOFLOXACIN 750 MG PREMIX INJ 150 ML IV SCH (08:31)
[2017-05-09 08:37] LABS: BICARBONATE 26.1 MEQ/L (21.0-32.0); POTASSIUM 4.4 MEQ/L (3.5-5.1)
[2017-05-09] MEDS ORDERED: Vancomycin Consult Pharmacy 1 EA OTHER SCH (10:15)
[2017-05-09] MEDS ORDERED: ENALAPRILAT 1.25 MG/ML VIAL IV PUSH PRN (10:15)
[2017-05-09] MEDS: ALPRAZolam 0.25 MG TAB PO PRN ×3 (10:26→18:29)
[2017-05-09] MEDS ORDERED: VANCOMYCIN INJ 1,000 MG in SODIUM CHLOR 0.9% 250 ML INJ 250 ML IV ONE (11:00)
[2017-05-09 12:00] VITALS: BP 113/82; PULSE 58; PULSE 81; RESP 20; TEMP 97.5; O2SAT 96
[2017-05-09] MEDS: VANCOMYCIN INJ 1,250 MG in SODIUM CHLOR 0.9% 250 ML INJ 250 ML IV SCH (14:25)
[2017-05-09 16:00] VITALS: BP 104/67; PULSE 54; PULSE 57; RESP 18; TEMP 97.5; O2SAT 99
--- NOTE | 2017-05-09 16:54 | HHI.PR ---
Subjective Remarks 59 YOWM with COPD, Pn, RLL density, post obst pn Feels better Gets anxious No Fever No hemoptysis Objective Vital Signs Vital Signs Date Time Temp Pulse Resp B/P Pulse Ox O2 Delivery O2 Flow Rate FiO2 05/09/17 12:00 97.5 81 20 113/82 96 05/09/17 08:00 97.3 83 22 154/108 99 05/09/17 08:00 82 05/09/17 04:00 63 05/09/17 04:00 97.0 62 18 110/76 92 05/09/17 00:00 96.2 75 18 110/73 95 05/09/17 00:00 60 05/08/17 21:00 64 05/08/17 20:00 96.1 65 17 124/85 93 I/O 05/08/17 05/08/17 05/08/17 05/09/17 05/09/17 05/09/17 07:00 15:00 23:00 07:00 15:00 23:00 Intake Total 300 ml 240 ml Output Total 0 ml Balance 300 ml 240 ml Intake Oral 300 ml 240 ml Output Stool Total 0 ml # Voids 3 1 3 Result Diagram: 05/09/17 0653 05/09/17 0653 Objective Remarks GENERAL: MBMN WM, NAD SKIN: Warm and dry. HEAD: Normocephalic. EYES: No scleral icterus. No injection or drainage. NECK: Supple, trachea midline. No JVD or lymphadenopathy. CARDIOVASCULAR: Regular rate and rhythm without murmurs, gallops, or rubs. RESPIRATORY: Breath sounds equal bilaterally. No accessory muscle use. GASTROINTESTINAL: Abdomen soft, non-tender, nondistended. MUSCULOSKELETAL: No cyanosis, or edema. BACK: Nontender without obvious deformity. No CVA tenderness. A/P Assessment and Plan RLL infilterates ? Post obstructive Pn Right hilar density Brobchiectesis Nicotine use ETOH use Anxiety disorder PLAN: DW Pt will need bronch Explained procedure and complications He agrees to proceed Will sophie Cont Abx Aerosol nebs. Jose Alberto Mena MD May 09, 2017 16:54
[2017-05-09 20:00] VITALS: BP 109/76; PULSE 71; RESP 18; TEMP 96.3; O2SAT 93
[2017-05-09] MEDS: OLANZapine 5 MG TAB PO SCH (20:30)
[2017-05-10] VITALS (7 sets, daily range): BP systolic 91–154; BP diastolic 62–88; PULSE 62–89; RESP 17–20; TEMP 96.1–96.7; O2SAT 92–94
[2017-05-10] MEDS: VANCOMYCIN INJ 1,250 MG in SODIUM CHLOR 0.9% 250 ML INJ 250 ML IV SCH (00:02)
[2017-05-10] MEDS: LEVOFLOXACIN 750 MG PREMIX INJ 150 ML IV SCH (08:07)
[2017-05-10] MEDS: ALPRAZolam 0.25 MG TAB PO PRN (08:07)
[2017-05-10] MEDS: ACETAMINOPHEN/HYDROcodone 325 MG/5 MG TAB PO PRN ×2 (08:07→21:37)
[2017-05-10] MEDS: SODIUM CHLORIDE 0.9% FLUSH 10 ML FLUSH IV FLUSH SCH ×2 (08:08→21:38)
--- NOTE | 2017-05-10 09:25 | HHI.PR ---
Subjective Remarks in no distress with no sob. still with some anxiety. afebrile. Objective Vitals Vital Signs Date Time Temp Pulse Resp B/P Pulse Ox O2 Delivery O2 Flow Rate FiO2 05/10/17 08:00 96.1 81 20 154/85 94 05/10/17 04:00 96.7 65 18 110/65 92 05/10/17 00:00 96.6 62 17 99/67 93 05/09/17 20:00 96.3 71 18 109/76 93 05/09/17 16:00 57 05/09/17 16:00 97.5 54 18 104/67 99 05/09/17 12:00 97.5 81 20 113/82 96 05/09/17 12:00 58 I/O 05/09/17 05/09/17 05/09/17 05/10/17 05/10/17 05/10/17 07:00 15:00 23:00 07:00 15:00 23:00 Intake Total 1440 ml Balance 1440 ml Intake Oral 1440 ml # Voids 3 4 2 Result Diagram: 05/09/17 0653 05/09/17 [address] Angiography 05/08/17 0352 Signed Impressions: Service Date/Time: Monday, May 08, 2017 04:21 - CONCLUSION: 1. No pulmonary embolus. 2. The findings soft tissue mass of the right hilum, either a darlene mass or a central primary bronchogenic carcinoma most likely. There is post obstructive pneumonia in the right lower lobe. 3. A modestly suspicious subpleural mass is also seen posteriorly in the left lower lobe. 4. There is subcarinal and bilateral axillary lymphadenopathy. 5. Coronary artery calcification. Juventino Novak MD Chest X-Ray 05/08/17 0225 Signed Impressions: Service Date/Time: Monday, May 08, 2017 02:21 - CONCLUSION: Mild bibasilar atelectasis. Juventino Novak MD Objective Remarks GENERAL: This is a well-nourished, well-developed patient, in no apparent distress. CARDIOVASCULAR: Regular rate and regular rhythm without murmurs, gallops, or rubs. RESPIRATORY: Clear to auscultation. Breath sounds equal bilaterally. No wheezes , rales, or rhonchi. GASTROINTESTINAL: Abdomen soft, non-tender, nondistended. Normal, active bowel sounds MUSCULOSKELETAL: Extremities without clubbing, cyanosis, or edema. NEURO: Alert & Oriented x4 to person, place, time, situation. Moves all ext x4 Procedures none Medications and IVs Current Medications Sodium Chloride (NS Flush) 2 ml UNSCH PRN IVF FLUSH AFTER USING IV ACCESS; Start 05/08/17 at 02:30; Stop 05/08/17 at 05:19; Status DC Methylprednisolone Sodium Succinate (SoluMEDROL INJ) 125 mg ONCE ONCE IVP Last administered on 05/08/17 02:35; Start 05/08/17 at 02:30; Stop 05/08/17 at 02:31; Status DC Albuterol/ Ipratropium (Duoneb Neb) 1 ampule Q15M INH Last administered on 05/08 02:35; Start 05/08/17 at 02:30; Stop 05/08/17 at 02:46; Status DC Lorazepam (Ativan Inj) 0.5 mg ONCE ONCE IV PUSH Last administered on 03:26; Start 05/08/17 at 03:15; Stop 05/08/17 at 03:16; Status DC Iohexol (Omnipaque 350 Inj) 70 ml STK-MED ONCE IV Last administered on 04:29; Start 05/08/17 at 04:29; Stop 05/08/17 at 04:30; Status DC Ondansetron HCl 4 mg 4 mg ONCE ONCE IV ; Start 05/08/17 at 05:00; Stop at 05:02; Status DC Ceftriaxone Sodium 1000 mg/ Sodium Chloride 100 ml @ 200 mls/hr ONCE ONCE IV Last administered on 05/08/17 05:16; Start 05/08/17 at 05:15; Stop 05/08/17 at 05:44; Status DC Azithromycin/ Sodium Chloride (Zithromax Inj/ NS 250 ml Inj) 250 ml @ 250 mls/ hr ONCE ONCE IV Last administered on 05/08/17 05:48; Start 05/08/17 at 05:15 ; Stop 05/08/17 at 06:14; Status DC Sodium Chloride (NS Flush) 2 ml UNSCH PRN IV FLUSH FLUSH AFTER USING IV ACCESS ; Start 05/08/17 at 05:15 Sodium Chloride (NS Flush) 2 ml BID IV FLUSH Last administered on 05/10/17 08: 08; Start 05/08/17 at 09:00 Naloxone HCl (Narcan Inj) 0.4 mg UNSCH PRN IV SEE LABEL COMMENTS; Start at 05:15 Albuterol/ Ipratropium 1 ampule 1 ampule Q4HR NEB PRN NEB wheezing; Start 05/08 at 05:15 Levofloxacin/ Dextrose (Levaquin 750 Mg Premix Inj) 150 ml @ 100 mls/hr Q24H IV Last administered on 05/10/17 08:07; Start 05/08/17 at 09:00 Olanzapine (ZyPREXA) 5 mg HS PO Last administered on 05/09/17 20:30; Start 09/14 at 21:00 Fluoxetine HCl (PROzac) 40 mg HS PRN PO drepression Last administered on 19:33; Start 05/08/17 at 07:45 Acetaminophen (Tylenol) 650 mg Q4H PRN PO FEVER/PAIN 1-3; Start 05/08/17 at 07: 45 Ondansetron HCl (Zofran Inj) 4 mg Q8HR PRN IV PUSH NAUSEA; Start 05/08/17 at 07 :45 Acetaminophen/ Hydrocodone Bitart ([place] 5-325 Mg) 1 tab Q6H PRN PO PAIN 4-6; Start 05/08/17 at 12:15 Acetaminophen/ Hydrocodone Bitart ([place] 5-325 Mg) 2 tab Q6H PRN PO PAIN 7-10 Last administered on 05/10/17 08:07; Start 05/08/17 at 12:15 Alprazolam (Xanax) 0.25 mg Q8HR PRN PO ANXIETY Last administered on 05/08/17 13:43; Start 05/08/17 at 12:15; Stop 05/09/17 at 08:24; Status DC Alprazolam 0.25 mg 0.25 mg Q6H PRN PO ANXIETY Last administered on 05/09/17 14 :29; Start 05/09/17 at 10:00; Stop 05/09/17 at 15:27; Status DC Vancomycin HCl 1000 mg/Sodium Chloride 250 ml @ 250 mls/hr ONCE ONCE IV ; Start 05/09/17 at 11:00; Stop 05/09/17 at 11:59; Status Cancel Pharmacy Profile Note (Vancomycin Consult Pharmacy) 0 ml @ 0 mls/hr UNSCH OTHER ; Start 05/09/17 at 10:15 Enalaprilat 1.25 mg 1.25 mg Q8H PRN IV PUSH SBP> OR = 180, DBP> OR = 100; Start 05/09/17 at 10:15 Vancomycin HCl/ Sodium Chloride (Vancomycin Inj/ NS 250 ml Inj) 262.5 ml @ 250 mls/hr Q12H IV Last administered on 05/10/17 00:02; Start 05/09/17 at 12:00 Miscellaneous Information SPECIFIC LAB TO BE DRAWN:VANCOMYCIN TROUGH DATE TO... ONCE ONCE .XX ; Start 05/11/17 at 11:45; Stop 05/11/17 at 11:46 Alprazolam (Xanax) 0.25 mg Q4H PRN PO ANXIETY Last administered on 05/10/17 08 :07; Start 05/09/17 at 15:27 A/P Assessment and Plan A/P - lung mass with postobstructive pneumonia CTA chest with no pulmonary embolus. with soft tissue mass of the right hilum , either a darlene mass or a central primary bronchogenic carcinoma most likely. with post obstructive pneumonia in the right lower lobe. and a modestly suspicious subpleural mass is also seen posteriorly in the left lower lobe. with subcarinal and bilateral axillary lymphadenopathy and Coronary artery calcification. continue Levaquin and neb treatment- one bottle of the blood cultures with staph epidermidis; likely contamination - will dc V[facility]. pulmonary consult appreciated and plan for bronchoscopy. -COPD- continue neb treatment -anxiety;xanax as needed. -DVT prophylaxis with SCD's Discharge Planning awaiting bronchoscopy- dc home when cleared by pulmonary. Kiran Brand MD May 10, 2017 09:25
[2017-05-10] MEDS: ALPRAZolam 0.5 MG TAB PO PRN (11:46)
[2017-05-10] MEDS ORDERED: PROPOFOL 200 MG/20 ML AMP IV ONE (12:00)
[2017-05-10] MEDS ORDERED: SODIUM CHLORID 0.9% 500 ML INJ 500 ML IV ONE (12:00)
[2017-05-10] MEDS ORDERED: ePHEDrine/NS 25 MG/5 ML SYR IV ONE (12:00)
[2017-05-10] MEDS ORDERED: PHENYLEPH/NS 1000 MCG/10 ML SYR IV ONE (12:00)
[2017-05-10] MEDS ORDERED: ONDANSETRON HCL 4 MG/2 ML VIAL IV PUSH ONE (12:00)
[2017-05-10] MEDS ORDERED: fentaNYL CITRATE 250 MCG/5 ML AMP ONE (17:05)
[2017-05-10] MEDS ORDERED: DO NOT ADM ANY ANTICOAGULANT DRUGS PRN (17:30)
--- NOTE | 2017-05-10 17:37 | RADRPT ---
EXAM DATE/TIME: 05/10/2017 16:59 [facility] COMPARISON: CT PULMONARY ANGIOGRAM, May 08, 2017, 4:21. CHEST SINGLE AP, May 08, 2017, 2:21. INDICATIONS : Post brochoscopy MEDICAL HISTORY : Hypertension. Chronic obstructive pulmonary disease. Cirrhosis.Renal stones SURGICAL HISTORY : ENCOUNTER: Subsequent ACUITY: 3 days PAIN SCORE: Non-responsive. LOCATION: Bilateral chest FINDINGS: A single view of the chest demonstrates the lungs to be symmetrically aerated without evidence of mas s, infiltrate or effusion. The cardiomediastinal contours are unremarkable. Osseous structures are intact. No pneumothorax.CONCLUSION: The right hilar mass is not discernible on this study. No pneumothorax. Faustino Sharp Jr., MD on May 10, 2017 at 17:33 Board Certified Radiologist. This report was verified electronically.
--- NOTE | 2017-05-10 17:42 | HHI.PR ---
Subjective Remarks 59 YOWM with COPD, Pn, RLL density, post obst pn Feels better No Fever No hemoptysis Had Bronch done Lot of thick mucous plugs removed bilat No mass seen Objective Vital Signs Vital Signs Date Time Temp Pulse Resp B/P Pulse Ox O2 Delivery O2 Flow Rate FiO2 05/10/17 17:30 72 16 147/92 95 Nasal Cannula 2 05/10/17 17:15 68 16 143/98 96 Nasal Cannula 2 05/10/17 17:00 76 16 145/95 95 Nasal Cannula 2 05/10/17 16:53 97.6 79 16 162/95 93 Nasal Cannula 2 05/10/17 15:30 96.2 73 20 131/79 92 05/10/17 12:00 96.4 77 20 91/62 94 05/10/17 08:00 96.1 81 20 154/85 94 05/10/17 04:00 96.7 65 18 110/65 92 05/10/17 00:00 96.6 62 17 99/67 93 05/09/17 20:00 96.3 71 18 109/76 93 I/O 05/09/17 05/09/17 05/09/17 05/10/17 05/10/17 05/10/17 06:59 14:59 22:59 06:59 14:59 22:59 Intake Total 1440 ml Balance 1440 ml Intake Oral 1440 ml # Voids 3 4 2 3 # Bowel Movements 2 Result Diagram: 05/09/17 0653 05/09/17 0653 Objective Remarks GENERAL: MBMN WM, NAD SKIN: Warm and dry. HEAD: Normocephalic. EYES: No scleral icterus. No injection or drainage. NECK: Supple, trachea midline. No JVD or lymphadenopathy. CARDIOVASCULAR: Regular rate and rhythm without murmurs, gallops, or rubs. RESPIRATORY: Breath sounds equal bilaterally. No accessory muscle use. GASTROINTESTINAL: Abdomen soft, non-tender, nondistended. MUSCULOSKELETAL: No cyanosis, or edema. BACK: Nontender without obvious deformity. No CVA tenderness. A/P Assessment and Plan RLL infilterates ? Post obstructive Pn Right hilar density Brobchiectesis Nicotine use ETOH use Anxiety disorder PLAN: Check bronch cultures Cont Abx Aerosol nebs. Mucomyst nebs Jose Alberto Meeks MD May 10, 2017 17:42
[2017-05-10] MEDS: OLANZapine 5 MG TAB PO SCH (21:37)
[2017-05-10 22:48] LABS: MRSA PCR NEGATIVE (NEGATIVE); STAPH AUREUS PCR NEGATIVE (NEGATIVE)
[2017-05-10] MEDS: RESP: ALBUTEROL 2.5 MG/IPRATROPIUM 0.5 MG NEB (PRN) NEB (23:25)
[2017-05-10] MEDS: RESP: ACETYLCYSTEINE 20% 30 ML NEB NEB SCH (23:25)
[2017-05-11] VITALS (8 sets, daily range): BP systolic 98–152; BP diastolic 65–102; PULSE 65–101; RESP 16–19; TEMP 96.1–98.1; O2SAT 93–97
--- NOTE | 2017-05-11 07:58 | HHI.PR ---
Subjective Remarks resting comfortably with no distress. no fever. anxiety is better. no new complaints. Objective Vitals Vital Signs Date Time Temp Pulse Resp B/P Pulse Ox O2 Delivery O2 Flow Rate FiO2 05/11/17 04:00 96.3 88 18 101/68 95 05/11/17 00:00 96.1 88 18 98/69 95 05/10/17 20:00 96.5 89 18 102/69 94 05/10/17 18:30 96.5 78 20 117/88 92 05/10/17 17:30 72 16 147/92 95 Nasal Cannula 2 05/10/17 17:15 68 16 143/98 96 Nasal Cannula 2 05/10/17 17:00 76 16 145/95 95 Nasal Cannula 2 05/10/17 16:53 97.6 79 16 162/95 93 Nasal Cannula 2 05/10/17 15:30 96.2 73 20 131/79 92 05/10/17 12:00 96.4 77 20 91/62 94 05/10/17 08:00 96.1 81 20 154/85 94 I/O 05/10/17 05/10/17 05/10/17 05/11/17 05/11/17 05/11/17 07:00 15:00 23:00 07:00 15:00 23:00 Intake Total 680 ml 480 ml Balance 680 ml 480 ml Intake Oral 480 ml 480 ml IV Total 200 ml # Voids 2 3 2 2 # Bowel Movements 2 Result Diagram: 05/09/17 0653 05/09/17 0653 Imaging Last Impressions Chest X-Ray 05/10/17 0000 Signed Impressions: Service Date/Time: April 16:59 - CONCLUSION: The right hilar mass is not discernible on this study. No pneumothorax. Faustino Sharp Jr., MD CT Angiography 05/08/17 0352 Signed Impressions: Service Date/Time: Monday, May 08, 2017 04:21 - CONCLUSION: 1. No pulmonary embolus. 2. The findings soft tissue mass of the right hilum, either a darlene mass or a central primary bronchogenic carcinoma most likely. There is post obstructive pneumonia in the right lower lobe. 3. A modestly suspicious subpleural mass is also seen posteriorly in the left lower lobe. 4. There is subcarinal and bilateral axillary lymphadenopathy. 5. Coronary artery calcification. Juventino Novak MD Objective Remarks GENERAL: This is a well-nourished, well-developed patient, in no apparent distress. CARDIOVASCULAR: Regular rate and regular rhythm without murmurs, gallops, or rubs. RESPIRATORY: Clear to auscultation. Breath sounds equal bilaterally. No wheezes , rales, or rhonchi. GASTROINTESTINAL: Abdomen soft, non-tender, nondistended. Normal, active bowel sounds MUSCULOSKELETAL: Extremities without clubbing, cyanosis, or edema. NEURO: Alert & Oriented x4 to person, place, time, situation. Moves all ext x4 Procedures bronchoscopy Medications and IVs Current Medications Sodium Chloride (NS Flush) 2 ml UNSCH PRN IVF FLUSH AFTER USING IV ACCESS; Start 05/08/17 at 02:30; Stop 05/08/17 at 05:19; Status DC Methylprednisolone Sodium Succinate (SoluMEDROL INJ) 125 mg ONCE ONCE IVP Last administered on 05/08/17 02:35; Start 05/08/17 at 02:30; Stop 05/08/17 at 02:31; Status DC Albuterol/ Ipratropium (Duoneb Neb) 1 ampule Q15M INH Last administered on 05/08 02:35; Start 05/08/17 at 02:30; Stop 05/08/17 at 02:46; Status DC Lorazepam (Ativan Inj) 0.5 mg ONCE ONCE IV PUSH Last administered on 03:26; Start 05/08/17 at 03:15; Stop 05/08/17 at 03:16; Status DC Iohexol (Omnipaque 350 Inj) 70 ml STK-MED ONCE IV Last administered on 04:29; Start 05/08/17 at 04:29; Stop 05/08/17 at 04:30; Status DC Ondansetron HCl 4 mg 4 mg ONCE ONCE IV ; Start 05/08/17 at 05:00; Stop at 05:02; Status DC Ceftriaxone Sodium 1000 mg/ Sodium Chloride 100 ml @ 200 mls/hr ONCE ONCE IV Last administered on 05/08/17 05:16; Start 05/08/17 at 05:15; Stop 05/08/17 at 05:44; Status DC Azithromycin/ Sodium Chloride (Zithromax Inj/ NS 250 ml Inj) 250 ml @ 250 mls/ hr ONCE ONCE IV Last administered on 05/08/17 05:48; Start 05/08/17 at 05:15 ; Stop 05/08/17 at 06:14; Status DC Sodium Chloride (NS Flush) 2 ml UNSCH PRN IV FLUSH FLUSH AFTER USING IV ACCESS Last administered on 05/10/17 10:15; Start 05/08/17 at 05:15 Sodium Chloride (NS Flush) 2 ml BID IV FLUSH Last administered on 05/10/17 21: 38; Start 05/08/17 at 09:00 Naloxone HCl (Narcan Inj) 0.4 mg UNSCH PRN IV SEE LABEL COMMENTS; Start at 05:15 Albuterol/ Ipratropium 1 ampule 1 ampule Q4HR NEB PRN NEB wheezing Last administered on 05/10/17 23:25; Start 05/08/17 at 05:15 Levofloxacin/ Dextrose (Levaquin 750 Mg Premix Inj) 150 ml @ 100 mls/hr Q24H IV Last administered on 05/10/17 08:07; Start 05/08/17 at 09:00 Olanzapine (ZyPREXA) 5 mg HS PO Last administered on 05/10/17 21:37; Start 09/14 at 21:00 Fluoxetine HCl (PROzac) 40 mg HS PRN PO drepression Last administered on 19:33; Start 05/08/17 at 07:45 Acetaminophen (Tylenol) 650 mg Q4H PRN PO FEVER/PAIN 1-3; Start 05/08/17 at 07: 45 Ondansetron HCl (Zofran Inj) 4 mg Q8HR PRN IV PUSH NAUSEA Last administered on 05/10/17 10:13; Start 05/08/17 at 07:45 Acetaminophen/ Hydrocodone Bitart ([place] 5-325 Mg) 1 tab Q6H PRN PO PAIN 4-6; Start 05/08/17 at 12:15 Acetaminophen/ Hydrocodone Bitart ([place] 5-325 Mg) 2 tab Q6H PRN PO PAIN 7-10 Last administered on 05/10/17 21:37; Start 05/08/17 at 12:15 Alprazolam (Xanax) 0.25 mg Q8HR PRN PO ANXIETY Last administered on 05/08/17 13:43; Start 05/08/17 at 12:15; Stop 05/09/17 at 08:24; Status DC Alprazolam 0.25 mg 0.25 mg Q6H PRN PO ANXIETY Last administered on 05/09/17 14 :29; Start 05/09/17 at 10:00; Stop 05/09/17 at 15:27; Status DC Vancomycin HCl 1000 mg/Sodium Chloride 250 ml @ 250 mls/hr ONCE ONCE IV ; Start 05/09/17 at 11:00; Stop 05/09/17 at 11:59; Status Cancel Pharmacy Profile Note (Vancomycin Consult Pharmacy) 0 ml @ 0 mls/hr UNSCH OTHER ; Start 05/09/17 at 10:15; Stop 05/10/17 at 09:26; Status DC Enalaprilat 1.25 mg 1.25 mg Q8H PRN IV PUSH SBP> OR = 180, DBP> OR = 100; Start 05/09/17 at 10:15 Vancomycin HCl/ Sodium Chloride (Vancomycin Inj/ NS 250 ml Inj) 262.5 ml @ 250 mls/hr Q12H IV Last administered on 05/10/17 00:02; Start 05/09/17 at 12:00; Stop 05/10/17 at 09:26; Status DC Miscellaneous Information SPECIFIC LAB TO BE DRAWN:VANCOMYCIN TROUGH DATE TO... ONCE ONCE .XX ; Start 05/11/17 at 11:45; Stop 05/11/17 at 11:46; Status Cancel Alprazolam (Xanax) 0.25 mg Q4H PRN PO ANXIETY Last administered on 05/10/17 08 :07; Start 05/09/17 at 15:27; Stop 05/10/17 at 09:27; Status DC Alprazolam (Xanax) 0.5 mg Q4H PRN PO ANXIETY Last administered on 05/10/17 11: 46; Start 05/10/17 at 09:35 Fentanyl Citrate (fentaNYL INJ) 250 mcg STK-MED ONCE .ROUTE ; Start 05/10/17 at 17:05; Stop 05/10/17 at 17:06; Status DC Miscellaneous Information ALL NURSING DEPARTME... UNSCH PRN .XX SEE LABEL COMMENTS; Start 05/10/17 at 17:30; Stop 05/11/17 at 17:29 Acetylcysteine (Mucomyst 20% Neb) 2 ml Q8HR NEB NEB Last administered on t 23:25; Start 05/11/17 at 00:00 A/P Assessment and Plan A/P - lung mass with postobstructive pneumonia CTA chest with no pulmonary embolus. with soft tissue mass of the right hilum , either a darlene mass or a central primary bronchogenic carcinoma most likely. with post obstructive pneumonia in the right lower lobe. and a modestly suspicious subpleural mass is also seen posteriorly in the left lower lobe. with subcarinal and bilateral axillary lymphadenopathy and Coronary artery calcification. continue Levaquin and neb treatment- one bottle of the blood cultures with staph epidermidis; likely contamination- s/p bronchoscopy- will follow the cultures. -COPD- continue neb treatment -anxiety;xanax as needed. -DVT prophylaxis with SCD's Discharge Planning dc home when cleared by pulmonary. Kiran Brand MD May 11, 2017 07:58
[2017-05-11] MEDS: ACETAMINOPHEN/HYDROcodone 325 MG/5 MG TAB PO PRN ×2 (08:22→14:36)
[2017-05-11] MEDS: LEVOFLOXACIN 750 MG PREMIX INJ 150 ML IV SCH (08:23)
[2017-05-11] MEDS: ALPRAZolam 0.5 MG TAB PO PRN ×2 (08:24→21:04)
[2017-05-11] MEDS: RESP: ALBUTEROL 2.5 MG/IPRATROPIUM 0.5 MG NEB (PRN) NEB ×2 (08:53→16:15)
[2017-05-11] MEDS: RESP: ACETYLCYSTEINE 20% 30 ML NEB NEB SCH ×3 (08:53→23:49)
[2017-05-11] MEDS ORDERED: PHARMACY ORDERED LAB ONE (11:45)
[2017-05-11] MEDS: SODIUM CHLORIDE 0.9% FLUSH 10 ML FLUSH IV FLUSH SCH ×2 (14:36→21:04)
--- NOTE | 2017-05-11 18:56 | HHI.PR ---
Subjective Remarks 59 YOWM with COPD, Pn, RLL density, post obst pn Feels better No Fever No hemoptysis Had Bronch done Lot of thick mucous plugs removed bilat No mass seen Breathing better Objective Vital Signs Vital Signs Date Time Temp Pulse Resp B/P Pulse Ox O2 Delivery O2 Flow Rate FiO2 05/11/17 16:00 98.1 78 16 120/73 97 05/11/17 16:00 96.5 65 16 109/65 95 05/11/17 12:00 96.5 74 18 110/78 95 05/11/17 08:54 93 05/11/17 08:00 96.9 84 19 152/102 93 05/11/17 04:00 96.3 88 18 101/68 95 05/11/17 00:00 96.1 88 18 98/69 95 05/10/17 20:00 96.5 89 18 102/69 94 I/O 05/10/17 05/10/17 05/10/17 05/11/17 05/11/17 05/11/17 07:00 15:00 23:00 07:00 15:00 23:00 Intake Total 680 ml 480 ml 650 ml Output Total 650 ml Balance 680 ml 480 ml 0 ml Intake Oral 480 ml 480 ml 650 ml IV Total 200 ml Output Urine Total 650 ml # Voids 2 3 2 2 2 # Bowel Movements 2 0 Result Diagram: 05/09/1765205/09/17 0653 Objective Remarks GENERAL: MBMN WM, NAD SKIN: Warm and dry. HEAD: Normocephalic. EYES: No scleral icterus. No injection or drainage. NECK: Supple, trachea midline. No JVD or lymphadenopathy. CARDIOVASCULAR: Regular rate and rhythm without murmurs, gallops, or rubs. RESPIRATORY: Breath sounds equal bilaterally. No accessory muscle use. GASTROINTESTINAL: Abdomen soft, non-tender, nondistended. MUSCULOSKELETAL: No cyanosis, or edema. BACK: Nontender without obvious deformity. No CVA tenderness. A/P Assessment and Plan RLL infilterates ? Post obstructive Pn Right hilar density Brobchiectesis Nicotine use ETOH use Anxiety disorder PLAN: Check bronch cultures and adjust abx Cont Abx Aerosol nebs. Mucomyst nebs Acapella Stable from pulm standpoint to Jose Alberto Reveles Dr., MD May 11, 2017 18:56
[2017-05-11] MEDS: OLANZapine 5 MG TAB PO SCH (21:04)
[2017-05-12] VITALS: BP 100/63; PULSE 75; RESP 16; TEMP 97.2; O2SAT 96
[2017-05-12 00:04] VITALS: PULSE 60
[2017-05-12 04:00] VITALS: BP 99/60; PULSE 75; RESP 16; TEMP 97.2; O2SAT 96
[2017-05-12 04:03] VITALS: PULSE 76
[2017-05-12 08:00] VITALS: BP 119/78; PULSE 107; RESP 14; TEMP 97.6; O2SAT 94
[2017-05-12] MEDS: RESP: ACETYLCYSTEINE 20% 30 ML NEB NEB SCH (08:00)
--- NOTE | 2017-05-12 08:06 | HHI.PR ---
Subjective Remarks resting comfortably with no distress. overall doing fine. no new complaints. afebrile. d/w the RN and no acute issues over night. Objective Vitals Vital Signs Date Time Temp Pulse Resp B/P Pulse Ox O2 Delivery O2 Flow Rate FiO2 05/12/17 04:03 76 05/12/17 04:00 97.2 75 16 99/60 96 05/12/17 00:04 60 05/12/17 00:00 97.2 75 16 100/63 96 05/11/17 20:05 101 05/11/17 20:00 97.3 77 16 101/68 95 05/11/17 16:00 98.1 78 16 120/73 97 05/11/17 16:00 96.5 65 16 109/65 95 05/11/17 12:00 96.5 74 18 110/78 95 05/11/17 08:54 93 I/O 05/11/17 05/11/17 05/11/17 05/12/17 05/12/17 05/12/17 07:00 15:00 23:00 07:00 15:00 23:00 Intake Total 480 ml 650 ml 720 ml 240 ml Output Total 650 ml Balance 480 ml 0 ml 720 ml 240 ml Intake Oral 480 ml 650 ml 720 ml 240 ml Output Urine Total 650 ml # Voids 2 2 2 3 # Bowel Movements 0 Result Diagram: 05/09/17 0653 05/09/17 0653 Imaging Last Impressions Chest X-Ray 05/10/17 0000 Signed Impressions: Service Date/Time: April 16:59 - CONCLUSION: The right hilar mass is not discernible on this study. No pneumothorax. Faustino Sharp Jr., MD CT Angiography 05/08/17 0352 Signed Impressions: Service Date/Time: Monday, May 08, 2017 04:21 - CONCLUSION: 1. No pulmonary embolus. 2. The findings soft tissue mass of the right hilum, either a darlene mass or a central primary bronchogenic carcinoma most likely. There is post obstructive pneumonia in the right lower lobe. 3. A modestly suspicious subpleural mass is also seen posteriorly in the left lower lobe. 4. There is subcarinal and bilateral axillary lymphadenopathy. 5. Coronary artery calcification. Juventino Novak MD Objective Remarks GENERAL: This is a well-nourished, well-developed patient, in no apparent distress. CARDIOVASCULAR: Regular rate and regular rhythm without murmurs, gallops, or rubs. RESPIRATORY: Clear to auscultation. Breath sounds equal bilaterally. No wheezes , rales, or rhonchi. GASTROINTESTINAL: Abdomen soft, non-tender, nondistended. Normal, active bowel sounds MUSCULOSKELETAL: Extremities without clubbing, cyanosis, or edema. NEURO: Alert & Oriented x4 to person, place, time, situation. Moves all ext x4 Procedures bronchoscopy Medications and IVs Current Medications Sodium Chloride (NS Flush) 2 ml UNSCH PRN IVF FLUSH AFTER USING IV ACCESS; Start 05/08/17 at 02:30; Stop 05/08/17 at 05:19; Status DC Methylprednisolone Sodium Succinate (SoluMEDROL INJ) 125 mg ONCE ONCE IVP Last administered on 05/08/17 02:35; Start 05/08/17 at 02:30; Stop 05/08/17 at 02:31; Status DC Albuterol/ Ipratropium (Duoneb Neb) 1 ampule Q15M INH Last administered on 05/08 02:35; Start 05/08/17 at 02:30; Stop 05/08/17 at 02:46; Status DC Lorazepam (Ativan Inj) 0.5 mg ONCE ONCE IV PUSH Last administered on 03:26; Start 05/08/17 at 03:15; Stop 05/08/17 at 03:16; Status DC Iohexol (Omnipaque 350 Inj) 70 ml STK-MED ONCE IV Last administered on 04:29; Start 05/08/17 at 04:29; Stop 05/08/17 at 04:30; Status DC Ondansetron HCl 4 mg 4 mg ONCE ONCE IV ; Start 05/08/17 at 05:00; Stop at 05:02; Status DC Ceftriaxone Sodium 1000 mg/ Sodium Chloride 100 ml @ 200 mls/hr ONCE ONCE IV Last administered on 05/08/17 05:16; Start 05/08/17 at 05:15; Stop 05/08/17 at 05:44; Status DC Azithromycin/ Sodium Chloride (Zithromax Inj/ NS 250 ml Inj) 250 ml @ 250 mls/ hr ONCE ONCE IV Last administered on 05/08/17 05:48; Start 05/08/17 at 05:15 ; Stop 05/08/17 at 06:14; Status DC Sodium Chloride (NS Flush) 2 ml UNSCH PRN IV FLUSH FLUSH AFTER USING IV ACCESS Last administered on 05/10/17 10:15; Start 05/08/17 at 05:15 Sodium Chloride (NS Flush) 2 ml BID IV FLUSH Last administered on 05/11/17 21: 04; Start 05/08/17 at 09:00 Naloxone HCl (Narcan Inj) 0.4 mg UNSCH PRN IV SEE LABEL COMMENTS; Start at 05:15 Albuterol/ Ipratropium 1 ampule 1 ampule Q4HR NEB PRN NEB wheezing Last administered on 05/11/17 16:15; Start 05/08/17 at 05:15 Levofloxacin/ Dextrose (Levaquin 750 Mg Premix Inj) 150 ml @ 100 mls/hr Q24H IV Last administered on 05/11/17 08:23; Start 05/08/17 at 09:00 Olanzapine (ZyPREXA) 5 mg HS PO Last administered on 05/11/17 21:04; Start 09/14 at 21:00 Fluoxetine HCl (PROzac) 40 mg HS PRN PO drepression Last administered on 19:33; Start 05/08/17 at 07:45 Acetaminophen (Tylenol) 650 mg Q4H PRN PO FEVER/PAIN 1-3; Start 05/08/17 at 07: 45 Ondansetron HCl (Zofran Inj) 4 mg Q8HR PRN IV PUSH NAUSEA Last administered on 05/10/17 10:13; Start 05/08/17 at 07:45 Acetaminophen/ Hydrocodone Bitart (Saxon 5-325 Mg) 1 tab Q6H PRN PO PAIN 4-6; Start 05/08/17 at 12:15 Acetaminophen/ Hydrocodone Bitart (Saxon 5-325 Mg) 2 tab Q6H PRN PO PAIN 7-10 Last administered on 05/11/17 14:36; Start 05/08/17 at 12:15 Alprazolam (Xanax) 0.25 mg Q8HR PRN PO ANXIETY Last administered on 05/08/17 13:43; Start 05/08/17 at 12:15; Stop 05/09/17 at 08:24; Status DC Alprazolam 0.25 mg 0.25 mg Q6H PRN PO ANXIETY Last administered on 05/09/17 14 :29; Start 05/09/17 at 10:00; Stop 05/09/17 at 15:27; Status DC Vancomycin HCl 1000 mg/Sodium Chloride 250 ml @ 250 mls/hr ONCE ONCE IV ; Start 05/09/17 at 11:00; Stop 05/09/17 at 11:59; Status Cancel Pharmacy Profile Note (Vancomycin Consult Pharmacy) 0 ml @ 0 mls/hr UNSCH OTHER ; Start 05/09/17 at 10:15; Stop 05/10/17 at 09:26; Status DC Enalaprilat 1.25 mg 1.25 mg Q8H PRN IV PUSH SBP> OR = 180, DBP> OR = 100; Start 05/09/17 at 10:15 Vancomycin HCl/ Sodium Chloride (Vancomycin Inj/ NS 250 ml Inj) 262.5 ml @ 250 mls/hr Q12H IV Last administered on 05/10/17 00:02; Start 05/09/17 at 12:00; Stop 05/10/17 at 09:26; Status DC Miscellaneous Information SPECIFIC LAB TO BE DRAWN:VANCOMYCIN TROUGH DATE TO... ONCE ONCE .XX ; Start 05/11/17 at 11:45; Stop 05/11/17 at 11:46; Status Cancel Alprazolam (Xanax) 0.25 mg Q4H PRN PO ANXIETY Last administered on 05/10/17 08 :07; Start 05/09/17 at 15:27; Stop 05/10/17 at 09:27; Status DC Alprazolam (Xanax) 0.5 mg Q4H PRN PO ANXIETY Last administered on 05/11/17 21: 04; Start 05/10/17 at 09:35 Fentanyl Citrate (fentaNYL INJ) 250 mcg STK-MED ONCE .ROUTE ; Start 05/10/17 at 17:05; Stop 05/10/17 at 17:06; Status DC Miscellaneous Information ALL NURSING DEPARTME... UNSCH PRN .XX SEE LABEL COMMENTS; Start 05/10/17 at 17:30; Stop 05/11/17 at 17:29; Status DC Acetylcysteine (Mucomyst 20% Neb) 2 ml Q8HR NEB NEB Last administered on t 16:15; Start 05/11/17 at 00:00 A/P Assessment and Plan A/P - lung mass with postobstructive pneumonia CTA chest with no pulmonary embolus. with soft tissue mass of the right hilum , either a darlene mass or a central primary bronchogenic carcinoma most likely. with post obstructive pneumonia in the right lower lobe. and a modestly suspicious subpleural mass is also seen posteriorly in the left lower lobe. with subcarinal and bilateral axillary lymphadenopathy and Coronary artery calcification. continue Levaquin . one bottle of the blood cultures with staph epidermidis; likely contamination- s/p bronchoscopy- culture with normal respiratory figueroa- fungal smear with rare yeast. pulmonary f/u appreciated. -COPD- continue neb treatment -anxiety;xanax as needed. -DVT prophylaxis with SCD's Discharge Planning dc home-likely later today when cleared by pulmonary. f/u; pcp and pulmonary upon discharge. see med list. d/w the patient and SANCHEZ. Kiran Brand MD May 12, 2017 08:06
[2017-05-12] MEDS: SODIUM CHLORIDE 0.9% FLUSH 10 ML FLUSH IV FLUSH SCH (08:18)
[2017-05-12] MEDS: LEVOFLOXACIN 750 MG PREMIX INJ 150 ML IV SCH (08:18)
[2017-05-12] MEDS: ACETAMINOPHEN/HYDROcodone 325 MG/5 MG TAB PO PRN (08:18)
[2017-05-12] MEDS: ALPRAZolam 0.5 MG TAB PO PRN (08:27)
[2017-05-12] MEDS ORDERED: LEVA500T20 PO (09:03)
--- NOTE | 2017-05-12 09:04 | HHI.DCPOC ---
Discharge Care Plan Diagnosis: (1) Lung mass (2) Postobstructive pneumonia Your Health Problems Are: Shortness of Breath Goals to Promote Your Health * To prevent worsening of your condition and complications * To maintain your health at the optimal level Directions to Meet Your Goals Take your medications as prescribed Follow your dietary instruction Follow activity as directed Keep your appointments as scheduled Take your immunizations and boosters as scheduled If your symptoms worsen call your PCP, if no PCP go to Urgent Care Center or Emergency Room Smoking is Dangerous to Your Health. Avoid second hand smoke Call the 24-hour hour crisis hotline for domestic abuse at Kiran Brand MD May 12, 2017 09:04
--- NOTE | 2017-05-12 09:05 | HHI.DS ---
Discharge Summary Admission Date May 08, 2017 at 05:04 Discharge Date: May 12, 2017 Admitting Diagnosis Lung mass with postobstructive pneumonia (1) Lung mass ICD Code: R91.8 Diagnosis: Principal (2) Postobstructive pneumonia ICD Code: J18.9 Diagnosis: Principal Procedures bronchoscopy Brief History - From Admission patient is a 62 y/o male. chronic smoker, with history of COPD who presented to ER with shortness of breath. he says that his sob started a few days ago. he has productive cough of yellowish sputum. he had some fever at home. he reports five-pound weight loss over the past one week.at the time of my evaluation he was resting comfortably with no acute distress. CBC/BMP: 05/09/17 0653 05/09/17 0653 Imaging Last Impressions Chest X-Ray 05/10/17 0000 Signed Impressions: Service Date/Time: April 16:59 - CONCLUSION: The right hilar mass is not discernible on this study. No pneumothorax. Faustino Sharp Jr., MD CT Angiography 05/08/17 0352 Signed Impressions: Service Date/Time: Monday, May 08, 2017 04:21 - CONCLUSION: 1. No pulmonary embolus. 2. The findings soft tissue mass of the right hilum, either a darlene mass or a central primary bronchogenic carcinoma most likely. There is post obstructive pneumonia in the right lower lobe. 3. A modestly suspicious subpleural mass is also seen posteriorly in the left lower lobe. 4. There is subcarinal and bilateral axillary lymphadenopathy. 5. Coronary artery calcification. Juventino Novak MD PE at Discharge GENERAL: This is a well-nourished, well-developed patient, in no apparent distress. CARDIOVASCULAR: Regular rate and regular rhythm without murmurs, gallops, or rubs. RESPIRATORY: Clear to auscultation. Breath sounds equal bilaterally. No wheezes , rales, or rhonchi. GASTROINTESTINAL: Abdomen soft, non-tender, nondistended. Normal, active bowel sounds MUSCULOSKELETAL: Extremities without clubbing, cyanosis, or edema. NEURO: Alert & Oriented x4 to person, place, time, situation. Moves all ext x4 Hospital Course - lung mass with postobstructive pneumonia CTA chest with no pulmonary embolus. with soft tissue mass of the right hilum , either a darlene mass or a central primary bronchogenic carcinoma most likely. with post obstructive pneumonia in the right lower lobe. and a modestly suspicious subpleural mass is also seen posteriorly in the left lower lobe. with subcarinal and bilateral axillary lymphadenopathy and Coronary artery calcification. continue Levaquin . one bottle of the blood cultures with staph epidermidis; likely contamination- s/p bronchoscopy- culture with normal respiratory figueroa- fungal smear with rare yeast. pathology to be followed up. pulmonary f/u appreciated. d/w pulmonary and cleared for discharge. -COPD- continue neb treatment -anxiety;xanax as needed. -DVT prophylaxis with SCD's Pt Condition on Discharge: Good Discharge Disposition: Discharge Home Discharge Time: <= 30 minutes Discharge Instructions DIET: Follow Instructions for: Heart Healthy Diet Activities you can perform: Regular-No Restrictions Follow up Referrals: PCP Follow-up Pulmonology New Medications: Levofloxacin (Levaquin) 500 Mg Tablet 500 MG PO DAILY infection Days 7 Ref 0 TAB Continued Medications: Fluoxetine (Prozac) 40 Mg Cap 40 CAP PO HS PRN drepression #30 Ref 0 CAP Hydromorphone (Dilaudid) 4 Mg Tab 4 MG PO Q6H PRN Pain Management Ref 0 TAB Olanzapine (Zyprexa) 5 Mg Tab 5 MG PO HS #30 Ref 0 TAB Kiran Brand MD May 12, 2017 09:05
[2017-05-12 12:00] VITALS: BP 119/78; PULSE 82; RESP 14; TEMP 98.2; O2SAT 93
--- NOTE | 2017-06-04 16:55 | MR ---
cc: PATRICE KEARNEY DATE 05/10/2017 PROCEDURE Bronchoscopy. PREOPERATIVE DIAGNOSIS Right lung density. POSTOPERATIVE DIAGNOSIS No endobronchial lesion seen. Mucus plugs removed. PROCEDURE DETAILS Informed consent was obtained from the patient. The procedure and the complications including complication of anesthesia, pneumothorax requiring chest tube, bleeding complications, injury to the blood vessels, lungs, nerves, arrhythmia, hypoxia were explained and he consented for the procedure. The patient was brought to the operating room under general anesthesia. Endotracheal tube was placed by anesthesiologist. Bronchoscopy was done through endotracheal tube. The main nika is sharp. Bronchoscope advanced to the right lung. Right upper, middle, lower lobes were visualized. A lot of thick mucus plugs were removed. After removing the mucus plugs all subsegments were noted to be patent. No mass was seen. Bronchoscope was advanced to the left lung. The left upper, middle and lower lobes were visualized. A small amount of mucus plugs were removed. Bronchial washing was done and was sent for routine culture, acid-fast bacillus, fungal culture and cytology. He tolerated the procedure well. MD NAREN Haynes/COLTEN /4:38 PM /4:40 PM
== END 2017-05-12 13:08 | disposition home or self-care (01) | DRG 192 ==
LOC: NEPC 02:07 → NEDA 05:04 → HOCB 06:43
PROVIDERS: ADMIT Internal Medicine; ATTEND Internal Medicine
PROC: 0BC48ZZ Extirpation of Matter from Right Upper Lobe Bronchus, Via Natural or Artificial Opening Endoscopic (ICD-10-PCS; 2017-05-10)
PROC: 0BC58ZZ Extirpation of Matter from Right Middle Lobe Bronchus, Via Natural or Artificial Opening Endoscopic (ICD-10-PCS; 2017-05-10)
PROC: 0BC68ZZ Extirpation of Matter from Right Lower Lobe Bronchus, Via Natural or Artificial Opening Endoscopic (ICD-10-PCS; principal; 2017-05-10 16:07)
DX: J47.0 Bronchiectasis with acute lower respiratory infection (principal); J18.9 Pneumonia, unspecified organism; K74.60 Unspecified cirrhosis of liver; G89.29 Other chronic pain; M54.5 Low back pain; B19.20 Unspecified viral hepatitis C without hepatic coma; F32.9 Major depressive disorder, single episode, unspecified; F17.210 Nicotine dependence, cigarettes, uncomplicated; K21.9 Gastro-esophageal reflux disease without esophagitis; I25.10 Atherosclerotic heart disease of native coronary artery without angina pectoris; R59.0 Localized enlarged lymph nodes; Z85.72 Personal history of non-Hodgkin lymphomas
CPT/HCPCS: 71010; 71275; 80048; 80053; 81001; 82550; 83605; 83735; 83880; 84484; 85025; 85379; 85610; 85730; 87015; 87040; 87070; 87102; 87116; 87186; 87205; 87206; 87640; 87641; 93005; 94640; 94664; 94667; 94668; 96374; 96375; J0456; J0696; J1956; J2060; J2370; J2405; J2930; J3010; J3370; J7040; J7050; J7608; Q9967